=== PATIENT | male | born 1975 | race American Indian/Alaskan Native ===

== ENCOUNTER 2016-08-16 08:37 | Emergency (ER) | payer MEDICAID ==
[2016-08-16 08:41] VITALS: BMI 33.0
--- NOTE | 2016-08-16 09:04 | ED PDOC ---
Arrival/HPI - General Historian: Patient - History of Present Illness Time/Duration: Prior to Arrival <Greg Macias - Last Filed: 08/16/16 10:03> <Gavin Matthew - Last Filed: 08/16/16 13:37> - General Chief Complaint: Substance Abuse Time Seen by Provider: 08/16/16 08:41 - History of Present Illness Narrative History of Present Illness (Text): 08/16/16 08:57 41 y/o male with no PMH presents with EMS with complaints of palpitations, chest discomfort and shortness of breath. Patient admits to taking "dwight" about one hour prior to arrival. Patient also admits to binge drinking for the past 2 days as well as insomnia x2 days. Patient currently complaints of left sided chest discomfort as well as shortness of breath and right distal leg parasthesias which he states started prior to arrival. He denies headache, focal weakness, n/v/d or recent fever or chills. Patient's last drink of alcohol was prior to arrival. He states he has used dwight in the past however it was "a long time ago". He typically drinks on weekends only stating he drinks a pint of ayden on each day of the weekend. He denies other illicit drug use such as heroin, cocaine, or IV drug use. (Greg Macias) Past Medical History - Provider Review Nursing Documentation Reviewed: Yes - Past History Past History: No Previous - Infectious Disease Hx of Infectious Diseases: None - Tetanus Immunization Tetanus Immunization: Unknown - Past Medical History Past Medical History: No Previous - Cardiac Hx Cardiac Disorders: No - Pulmonary Hx Respiratory Disorders: No - Neurological Hx Neurological Disorder: No - HEENT Hx HEENT Disorder: No - Renal Hx Renal Disorder: No - Endocrine/Metabolic Hx Endocrine Disorders: No - Hematological/Oncological Hx Blood Disorders: No - Integumentary Hx Dermatological Disorder: No - Musculoskeletal/Rheumatological Hx Musculoskeletal Disorders: No Hx Falls: No - Gastrointestinal Hx Gastrointestinal Disorders: No - Genitourinary/Gynecological Hx Genitourinary Disorders: No - Psychiatric Hx Anxiety: Yes Hx Depression: No Hx Emotional Abuse: No Hx Physical Abuse: No Hx Substance Use: Yes - Past Surgical History Past Surgical History: No Previous - Anesthesia Hx Anesthesia: No - Suicidal Assessment Feels Threatened In Home Enviroment: No <Greg Macias - Last Filed: 08/16/16 10:03> Family/Social History - Physician Review Nursing Documentation Reviewed: Yes Family/Social History: Unknown Family HX Smoking Status: Heavy Smoker > 10 Cigarettes Daily Hx Alcohol Use: Yes Frequency of alcohol use: Socially Hx Substance Use: Yes Substance used: dwight Hx Substance Use Treatment: No <Greg Macias - Last Filed: 08/16/16 10:03> Allergies/Home Meds <Greg Macias - Last Filed: 08/16/16 10:03> <VipulGavin - Last Filed: 08/16/16 13:37> Allergies/Adverse Reactions: Allergies No Known Allergies Allergy (Verified 08/16/16 08:52) Home Medications: Home Meds Medication Instructions Recorded Confirmed ALPRAZolam HALF TABLET [Xanax HALF 0 mg PO 08/16/16 TABLET] Review of Systems - Physician Review All systems were reviewed & negative as marked: Yes - Review of Systems Constitutional: Normal. absent: Fatigue, Fevers Eyes: Normal ENT: Normal Respiratory: SOB. absent: Cough, Sputum, Wheezing Cardiovascular: Chest Pain, Palpitations. absent: Calf Pain, GOMES Gastrointestinal: absent: Abdominal Pain, Diarrhea, Nausea Genitourinary Male: absent: Dysuria, Frequency, Hematuria Musculoskeletal: absent: Arthralgias, Back Pain Skin: absent: Rash, Pruritis, Skin Lesions Neurological: absent: Headache, Dizziness, Focal Weakness Endocrine: absent: Diaphoresis Psychiatric: Anxiety. absent: Depression <Greg Macias - Last Filed: 08/16/16 10:03> Physical Exam Vital Signs Reviewed: Yes Temperature: Afebrile Blood Pressure: Hypertensive Pulse: Tachycardic Respiratory Rate: Normal Appearance: Positive for: Well-Appearing, Non-Toxic Pain Distress: None Mental Status: Positive for: Alert and Oriented X 3 - Systems Exam Head: Present: Atraumatic, Normocephalic Pupils: Present: PERRL Extroacular Muscles: Present: EOMI Conjunctiva: Present: Normal Mouth: Present: Dry Neck: Present: Normal Range of Motion. No: Meningeal Signs Respiratory/Chest: Present: Clear to Auscultation, Good Air Exchange. No: Respiratory Distress Cardiovascular: Present: Normal S1, S2, Tachycardic. No: Irregular Rhythm Abdomen: Present: Normal Bowel Sounds. No: Tenderness, Distention Upper Extremity: Present: Normal Inspection, Normal ROM. No: Cyanosis, Edema Lower Extremity: Present: Normal Inspection, NORMAL PULSES, Normal ROM. No: Edema, CALF TENDERNESS Neurological: Present: GCS=15, CN II-XII Intact, Speech Normal, Normal Sensory Function. No: Motor Func Grossly Intact Skin: Present: Warm, Dry. No: Rashes Psychiatric: Present: Alert, Oriented x 3, Intoxicated <Greg Macias - Last Filed: 08/16/16 10:03> Vital Signs Temp Pulse Resp BP Pulse Ox 08/16/16 11:39 98.2 F 103 H 18 141/74 97 08/16/16 08:39 98 F 117 H 20 164/90 H 98 Medical Decision Making <Greg Macias - Last Filed: 08/16/16 10:03> - Lab Interpretations I have reviewed the lab results: Yes <Gavin Matthew - Last Filed: 08/16/16 13:37> ED Course and Treatment: 08/16/16 09:34 41 y/o male with no significant PMH presenting with complaints of chest discomfort and shortness of breath with associated illicit drug use. Patient admits to using the drug dwight today as well as recent alcohol binging. Last alcohol ingestion was prior to arrival. The patient is noted to be tachycardic and hypertensive which is likely due to drug effects rather than alcohol withdrawal given proximity of last drink. Will rule out cardiac ischemia, continue to monitor and treat intoxication. EKG with sinus tachycardia and nonspecific EKG changes. No evidence of acute ischemia. - cardiac iso - CBC - CMP - drug screen - serum etoh - PT/PTT - EKG - UA - ativan 1gm IV now. 08/16/16 09:54 lab results reviewed. leukocytosis is noted. alcohol level is negative which indicates patient's tachycardia may be due to alcohol withdrawal. cardiac enzymes are pending. chest xray is without acute pathology. 08/16/16 10:03 Patient is persistently tachycardic. Case discussed with Dr. Pozo who agrees to admit the patient to the hospitalist service for acute alcohol withdrawal. (Greg Macias) Patient seen and examined with resident. Came up with treatment and disposition plan with resident. The patient is a 41 year old male who comes into the emergency department complaining of chest palpitations, chest discomfort and shortness of breath. Patient admitted to using drugs and drinking alcohol prior to arrival. Additional HPI details as noted by the resident. Physical examination reveals the patient is tachycardiac and intoxicated. Will obtain EKG, Chest X-ray and lab work to rule out cardiac etiology. Will give patient ativan. EKG shows Sinus tachycardia at 116 BPM with nonspecific T changes. Chest X-ray shows no active disease. Lab work shows leukocytosis and a negative alcohol level. Result indicate patient is most probably in alcohol withdrawal and will need admission. Case was discussed with Dr. Patel, who is aware and agrees with plan to admit patient to remote telemetry under her services for alcohol withdrawal. Results and plan was discussed with the patient, who expressed understanding. Patient was given the opportunity to ask question, all questions were answered and there is agreement with the plan to be admitted to the hospital. 08/16/16 13:36 pt seen with resident. pt with h/o of etoh abuse, presetns with palpiations after "binge drinking". pt with tachcardia on arrival, ativan given. pt accepted to hospitalist service. (Gavni Matthew) - Lab Interpretations Lab Results: 08/16/16 09:18 08/16/16 09:18 Lab Results 08/16/16 09:18: WBC 12.6 H D, RBC 5.23, Hgb 16.1, Hct 44.3, MCV 84.7, MCH 30.8, MCHC 36.3, RDW 13.4, Plt Count 330, MPV 9.4, Gran % 67.5, Lymph % (Auto) 25.1, [place] % (Auto) 6.9 H, Eos % (Auto) 0.3 L, Baso % (Auto) 0.2, Gran # 8.48 H, Lymph # 3.2, [place] # 0.9 H, Eos # 0.0, Baso # 0.02, Sodium 136, Potassium 3.7, Chloride 98, Carbon Dioxide 21, Anion Gap 21 H, BUN 11, Creatinine 1.0, Est GFR ( Amer) > 60, Est GFR (Non-Af Amer) > 60, Random Glucose 133 H, Calcium 10.3, Magnesium 1.9, Total Bilirubin 1.4 H, AST 50, ALT 58 H, Alkaline Phosphatase 131, Lactate Dehydrogenase 485, Total Creatine Kinase 745 H, CK-MB ( CK-2) 1.6, CK-MB (CK-2) % Cancelled, Troponin I < 0.01, Total Protein 9.3 H, Albumin 5.0 H, Globulin 4.3, Albumin/Globulin Ratio 1.2, Alcohol, Quantitative < 10 - RAD Interpretation Radiology Orders: 08/16/16 08:54 CHEST PORTABLE [RAD] Stat - Medication Orders Current Medication Orders: Discontinued Medications Sodium Chloride (Sodium Chloride 0.9%) 1,000 mls @ 999 mls/hr IV .Q1H1M STA Stop: 08/16/16 11:00 Last Admin: 08/16/16 11:05 Dose: 999 MLS/HR eMAR Start Stop Document 08/16/16 11:05 SRE (Rec: 08/16/16 11:05 SRE [id number]) Intravenous Solution Start Date 08/16/16 Start Time 10:00 End Date 08/16/16 End time 11:00 Total Infusion Time 60 Folic Acid 1 mg/ Thiamine HCl 100 mg/ Multivitamins/Vitamin C 10 ml/ Dextrose 1 ,011.2 mls @ 100 mls/hr IV .Q10H7M [facility] Ketorolac Tromethamine (Toradol) Confirm Administered Dose 30 mg .ROUTE .STK- MED ONE Stop: 08/16/16 09:55 Last Admin: 08/16/16 09:58 Dose: 30 MG Lorazepam (Ativan) 1 mg IVP STAT STA PRN Reason: Protocol Stop: 08/16/16 09:02 Last Admin: 08/16/16 09:10 Dose: 1 MG Behavioural Document 08/16/16 09:10 SRE (Rec: 08/16/16 09:16 SRE [id number]) Maintenance Maintenance Dose No Nonmedicinal Nonmedicinal Interventions See nurse's notes Behavior Behavior for Medication: Anxiety IVP Administration Document 08/16/16 09:10 SRE (Rec: 08/16/16 09:16 SRE [id number]) Charges for Administration # of IVP Administrations 1 Lorazepam (Ativan) 0.5 mg IVP Q6H PRN; Protocol PRN Reason: Anxiety Ondansetron HCl (Zofran Inj) 4 mg IVP Q4H PRN PRN Reason: Nausea/Vomiting Pantoprazole Sodium (Protonix Inj) 40 mg IVP DAILY LUL <Greg Macias - Last Filed: 08/16/16 10:03> - Scribe Statement The provider has reviewed the documentation as recorded by the Scribe <Gavin Matthew - Last Filed: 08/16/16 13:37> - Scribe Statement Cordelia Dangelo Provider Scribe Attestation: All medical record entries made by the Scribe were at my direction and personally dictated by me. I have reviewed the chart and agree that the record accurately reflects my personal performance of the history, physical exam, medical decision making, and the department course for this patient. I have also personally directed, reviewed, and agree with the discharge instructions and disposition. (Gavin Matthew) Disposition/Present on Arrival - Present on Arrival Any Indicators Present on Arrival: No History of DVT/PE: No History of Uncontrolled Diabetes: No Urinary Catheter: No History of Decub. Ulcer: No History Surgical Site Infection Following: None - Disposition Have Diagnosis and Disposition been Completed?: Yes Disposition Time: 10:06 Patient Plan: Admission <Greg Macias - Last Filed: 08/16/16 10:03> <Gavni [email or web address] - Last Filed: 08/16/16 13:37> - Disposition Diagnosis: Alcohol withdrawal syndrome Disposition: AGAINST MEDICAL ADVICE Condition: FAIR Referrals: Apurva Fields MD [Primary Care Provider] - Follow up with primary
--- NOTE | 2016-08-16 09:19 | RAD ---
HISTORY: cp COMPARISON: 08/24/2015 FINDINGS: LUNGS: No active pulmonary disease. PLEURA: No significant pleural effusion identified, no pneumothorax apparent. CARDIOVASCULAR: Normal. OSSEOUS STRUCTURES: No significant abnormalities. VISUALIZED UPPER ABDOMEN: Normal. OTHER FINDINGS: None. IMPRESSION: No active disease.
[2016-08-16 09:21] LABS: ADD MANUAL DIFF? NO
[2016-08-16 09:29] LABS: BASO # 0.02 K/mm3 (0.0-2.0); BASO % 0.2 % (0.0-3.0); EOS % 0.3 % (1.5-5.0); GRAN # 8.48 (1.4-6.5); GRAN % 67.5 % (50.0-68.0); HEMATOCRIT 44.3 % (42.0-52.0); LYMPH # 3.2 (1.2-3.4); LYMPH % 25.1 % (22.0-35.0); MEAN CELL VOLUME 84.7 fL (80.0-105.0); MEAN CORPUSCULAR HEMOGLOBIN 30.8 pg (25.0-35.0); MEAN CORPUSCULAR HGB CONC 36.3 g/dl (31.0-37.0); MEAN PLATELET VOLUME 9.4 fl (7.0-11.0); MONO # 0.9 (0.1-0.6); MONO % 6.9 % (1.0-6.0); PLATELET COUNT 330 10^3/uL (120.0-450.0); RED CELL DISTRIBUTION WIDTH 13.4 % (11.5-14.5); WHITE BLOOD COUNT 12.6 10^3/ul (4.5-11.0)
[2016-08-16 09:39] LABS: ALB/GLOB RATIO 1.2 (1.1-1.8); ALKALINE PHOSPHATASE 131 U/L (38-133); ALT/SGPT 58 U/L (7-56); AST/SGOT 50 U/L (15-59); BILIRUBIN,TOTAL 1.4 mg/dL (0.2-1.3); BLOOD UREA NITROGEN 11 mg/dL (7-21); CALCIUM 10.3 mg/dL (8.4-10.5); CARBON DIOXIDE 21 mmol/L (21-33); CHLORIDE 98 mmol/L (98-107); GFR AFRICAN-AMERICAN > 60; GLUCOSE,RANDOM 133 mg/dL (70-110); MAGNESIUM 1.9 mg/dL (1.7-2.2); POTASSIUM 3.7 mmol/L (3.6-5.0); SODIUM 136 mmol/L (132-148); TOTAL PROTEIN 9.3 g/dL (5.8-8.3)
[2016-08-16 09:50] LABS: TROPONIN I < 0.01 ng/mL
[2016-08-16] MEDS ORDERED: Sodium Chloride 0.9% 1,000 ML IV STA (10:00)
--- NOTE | 2016-08-16 10:05 | CP.PCM.HP ---
<Diony Preciado - Last Filed: 08/16/16 12:47> History of Present Illness - History of Present Illness History of Present Illness: CC: Chest pain 41 M without PMH presents was brought in by EMS with complaints of palpitations , chest discomfort and shortness of breath. Patient stated a sudden onset and never having experienced these symptoms before. He admits to taking "dwight" about one hour prior to arrival. Patient also reported to binge drinking for the past 2 days without sleeping. He stated that he has been under a lot of stress from work and his girlfriend this week. He rated the chest pain as 1/10 now, but prior to arrival it was 8/10. He described the pain as a constant pressure located in the left chest area without radiation. He denied associated jaw/arm pain and numbness/tingling. Nothing he noticed alleviates or exacerbates the pain. He did not take anything for the pain. Patient's last drink of alcohol was earlier today. He states he has used dwight in the past however it was "a long time ago". He typically drinks on weekends only stating he drinks a pint of ayden on each day of the weekend. He denies other illicit drug use such as heroin, cocaine, or IV drug use. Denies syncope, lightheadedness, vertigo, headache, focal weakness, fever/chills, abd pain, n/v/ d, constipation, incontinence, urinary symptoms. PMD: Dr. Apurva Fields PMH: Denies Meds: Denies Allergy: NKDA PSH: Denies Hosp: Multiple ER vists in past for various issues including alcohol intoxication FH: Grandmother - DM Social: Smokes cigarettes occassionally, drink 1 pint on weekend days, denied other illicit drug use besides "dwight" Present on Admission - Present on Admission Any Indicators Present on Admission: No History of DVT/PE: No History of Uncontrolled Diabetes: No Urinary Catheter: No Decubitus Ulcer Present: No Review of Systems - Review of Systems All systems: reviewed and no additional remarkable complaints except (as per HPI ) Past Patient History - Infectious Disease Hx of Infectious Diseases: None - Tetanus Immunizations Tetanus Immunization: Unknown - Past Medical History & Family History Past Medical History?: No - Past Social History Smoking Status: Heavy Smoker > 10 Cigarettes Daily - CARDIAC Hx Cardiac Disorders: No - PULMONARY Hx Respiratory Disorders: No - NEUROLOGICAL Hx Neurological Disorder: No - HEENT Hx HEENT Problems: No - RENAL Hx Chronic Kidney Disease: No - ENDOCRINE/METABOLIC Hx Endocrine Disorders: No - HEMATOLOGICAL/ONCOLOGICAL Hx Blood Disorders: No - INTEGUMENTARY Hx Dermatological Problems: No - MUSCULOSKELETAL/RHEUMATOLOGICAL Hx Musculoskeletal Disorders: No Hx Falls: No - GASTROINTESTINAL Hx Gastrointestinal Disorders: No - GENITOURINARY/GYNECOLOGICAL Hx Genitourinary Disorders: No - PSYCHIATRIC Hx Anxiety: Yes Hx Depression: No Hx Emotional Abuse: No Hx Physical Abuse: No Hx Substance Use: Yes - SURGICAL HISTORY Hx Surgeries: No - ANESTHESIA Hx Anesthesia: No Meds Allergies/Adverse Reactions: Allergies Allergy/AdvReac Type Severity Reaction Status Date / Time No Known Allergies Allergy Verified 08/16/16 08:52 Physical Exam - Constitutional Appears: Non-toxic, No Acute Distress - Head Exam Head Exam: ATRAUMATIC, NORMOCEPHALIC - Eye Exam Eye Exam: EOMI, Normal appearance Pupil Exam: PERRL - ENT Exam ENT Exam: Mucous Membranes Moist - Neck Exam Neck exam: Positive for: Normal Inspection - Respiratory Exam Respiratory Exam: Clear to Auscultation Bilateral, NORMAL BREATHING PATTERN - Cardiovascular Exam Cardiovascular Exam: REGULAR RHYTHM, +S1, +S2 - GI/Abdominal Exam GI & Abdominal Exam: Normal Bowel Sounds, Soft. absent: Distended, Firm, Guarding, Rebound, Tenderness - Extremities Exam Extremities exam: Positive for: normal capillary refill, pedal pulses present. Negative for: calf tenderness - Back Exam Back exam: absent: CVA tenderness (L), CVA tenderness (R) - Neurological Exam Neurological exam: Alert, CN II-XII Intact, Oriented x3 - Psychiatric Exam Psychiatric exam: Normal Affect, Normal Mood - Skin Skin Exam: Dry, Intact, Normal Color, Warm Results - Vital Signs Recent Vital Signs: Last Vital Signs Temp 98 F 08/16/16 08:39 Pulse 117 H 08/16/16 08:39 Resp 20 08/16/16 08:39 BP 164/90 H 08/16/16 08:39 Pulse Ox 98 08/16/16 08:39 - Labs Result Diagrams: 08/16/16 09:18 08/16/16 09:18 Labs: Laboratory Results - last 24 hr 08/16/16 09:18 WBC 12.6 H D RBC 5.23 Hgb 16.1 Hct 44.3 MCV 84.7 MCH 30.8 MCHC 36.3 RDW 13.4 Plt Count 330 MPV 9.4 Gran % 67.5 Lymph % (Auto) 25.1 [place] % (Auto) 6.9 H Eos % (Auto) 0.3 L Baso % (Auto) 0.2 Gran # 8.48 H Lymph # 3.2 [place] # 0.9 H Eos # 0.0 Baso # 0.02 Sodium 136 Potassium 3.7 Chloride 98 Carbon Dioxide 21 Anion Gap 21 H BUN 11 Creatinine 1.0 Est GFR ( Amer) > 60 Est GFR (Non-Af Amer) > 60 Random Glucose 133 H Calcium 10.3 Magnesium 1.9 Total Bilirubin 1.4 H AST 50 ALT 58 H Alkaline Phosphatase 131 Lactate Dehydrogenase 485 Total Creatine Kinase 745 H CK-MB (CK-2) 1.6 CK-MB (CK-2) % Cancelled Troponin I < 0.01 Total Protein 9.3 H Albumin 5.0 H Globulin 4.3 Albumin/Globulin Ratio 1.2 Alcohol, Quantitative < 10 Assessment & Plan - Assessment and Plan (Free Text) Plan: 1. Chest pain Admit to telemetry for observation Serial Troponins UDS IVF Ativan PRN EKG: Sinus tachycardia Banana bag Lipid panel, TSH, HA1C Zofran PRN CXR: no active disease f/u daily labs HHD 2. Substance abuse Ativan PRN Banana bag Zofran PRN UDS Hep panel Serum Alcohol level 3. Prophylactic Measures PT/OT Protonix 40 mg PO daily Aspiration precautions Seizure precautions Fall risk <Flor Pozo - Last Filed: 08/17/16 10:55> Results - Vital Signs Recent Vital Signs: Last Vital Signs Temp 98.2 F 08/16/16 11:39 Pulse 103 H 08/16/16 11:39 Resp 18 08/16/16 11:39 BP 141/74 08/16/16 11:39 Pulse Ox 97 08/16/16 11:39 - Labs Result Diagrams: 08/16/16 09:18 08/16/16 09:18 Assessment & Plan - Assessment and Plan (Free Text) Assessment: attending note: patient seen and examined with resident in ER. Patient is a 41 Male without PMH presents was brought in by EMS with complaints of palpitations, chest discomfort and shortness of breath. Patient stated a sudden onset and never having experienced these symptoms before. He admits to taking "dwight" about one hour prior to arrival. Patient also reported to binge drinking for the past 2 days without sleeping. atypical chest discomfort; cardiac enzyme x 1 negative. Currently patient denied any chest pain. EKG showed nonspecific T-wave changes similar to old EKG. Alcohol abuse; monitor for withdrawal symptoms. Continue Ativan. Elevated LFTs; secondary to alcohol abuse. Complete alcohol cessation is strongly advised. Hepatitis profile ordered. Hypercholesterolemia; and dietary education given. drug abuse; patient is using Dwight. complete cessation is strongly advised. Patient will be admitted to telemetry floor and monitored closely. Attending/Attestation - Attestation I have personally seen and examined this patient.: Yes I have fully participated in the care of the patient.: Yes I have reviewed all pertinent clinical information: Yes
[2016-08-16] MEDS ORDERED: Folic Acid 1 MG, Thiamine 100 MG, Multivitamin (MVI) 10 ML in Dextrose 5% In Water 1,00... IV SCH (11:30)
[2016-08-16 11:42] VITALS: BP 141/74; PULSE 103; RESP 18; TEMP 98.2; O2SAT 97
--- NOTE | 2016-08-16 13:11 | CP.PCM.DIS ---
<Diony Preciado - Last Filed: 08/16/16 13:06> Provider - Provider Primary care physician: Apurva Fields MD Time Spent in preparation of Discharge (in minutes): 40 Diagnosis - Discharge Diagnosis (1) Chest pain Status: Acute Comment: see hospital course (2) Substance abuse Status: Acute Comment: see hospital course Hospital Course - Lab Results Lab Results: Most Recent Lab Values WBC 12.6 10^3/ul (4.5-11.0) H D 08/16/16 09:18 RBC 5.23 10^6/uL (3.5-6.1) 08/16/16 09:18 Hgb 16.1 gm/dL (14.0-18.0) 08/16/16 09:18 Hct 44.3 % (42.0-52.0) 08/16/16 09:18 MCV 84.7 fL (80.0-105.0) 08/16/16 09:18 MCH 30.8 pg (25.0-35.0) 08/16/16 09:18 MCHC 36.3 g/dl (31.0-37.0) 08/16/16 09:18 RDW 13.4 % (11.5-14.5) 08/16/16 09:18 Plt Count 330 10^3/uL (120.0-450.0) 08/16/16 09:18 MPV 9.4 fl (7.0-11.0) 08/16/16 09:18 Gran % 67.5 % (50.0-68.0) 08/16/16 09:18 Lymph % (Auto) 25.1 % (22.0-35.0) 08/16/16 09:18 [place] % (Auto) 6.9 % (1.0-6.0) H 08/16/16 09:18 Eos % (Auto) 0.3 % (1.5-5.0) L 08/16/16 09:18 Baso % (Auto) 0.2 % (0.0-3.0) 08/16/16 09:18 Gran # 8.48 (1.4-6.5) H 08/16/16 09:18 Lymph # 3.2 (1.2-3.4) 08/16/16 09:18 [place] # 0.9 (0.1-0.6) H 08/16/16 09:18 Eos # 0.0 (0.0-0.7) 08/16/16 09:18 Baso # 0.02 K/mm3 (0.0-2.0) 08/16/16 09:18 Sodium 136 mmol/L (132-148) 08/16/16 09:18 Potassium 3.7 mmol/L (3.6-5.0) 08/16/16 09:18 Chloride 98 mmol/L (98-107) 08/16/16 09:18 Carbon Dioxide 21 mmol/L (21-33) 08/16/16 09:18 Anion Gap 21 (10-20) H 08/16/16 09:18 BUN 11 mg/dL (7-21) 08/16/16 09:18 Creatinine 1.0 mg/dL (0.5-1.4) 08/16/16 09:18 Est GFR ( Amer) > 60 08/16/16 09:18 Est GFR (Non-Af Amer) > 60 08/16/16 09:18 Random Glucose 133 mg/dL (70-110) H 08/16/16 09:18 Calcium 10.3 mg/dL (8.4-10.5) 08/16/16 09:18 Magnesium 1.9 mg/dL (1.7-2.2) 08/16/16 09:18 Total Bilirubin 1.4 mg/dL (0.2-1.3) H 08/16/16 09:18 AST 50 U/L (15-59) 08/16/16 09:18 ALT 58 U/L (7-56) H 08/16/16 09:18 Alkaline Phosphatase 131 U/L (38-133) 08/16/16 09:18 Lactate Dehydrogenase 485 U/L (333-699) 08/16/16 09:18 Total Creatine Kinase 745 U/L (35-230) H 08/16/16 09:18 CK-MB (CK-2) 1.6 ng/mL (0.0-3.6) 08/16/16 09:18 CK-MB (CK-2) % Cancelled 08/16/16 09:18 Troponin I < 0.01 ng/mL 08/16/16 09:18 Total Protein 9.3 g/dL (5.8-8.3) H 08/16/16 09:18 Albumin 5.0 g/dL (3.0-4.8) H 08/16/16 09:18 Globulin 4.3 gm/dL 08/16/16 09:18 Albumin/Globulin Ratio 1.2 (1.1-1.8) 08/16/16 09:18 Alcohol, Quantitative < 10 mg/dL (0-10) 08/16/16 09:18 - Hospital Course Hospital Course: 41 M without PMH presents was brought in by EMS with complaints of palpitations , chest discomfort and shortness of breath. Patient stated a sudden onset and never having experienced these symptoms before. He admits to taking "dwight" about one hour prior to arrival. Patient also reported to binge drinking for the past 2 days without sleeping. He stated that he has been under a lot of stress from work and his girlfriend this week. He rated the chest pain as 1/10 now, but prior to arrival it was 8/10. He described the pain as a constant pressure located in the left chest area without radiation. He denied associated jaw/arm pain and numbness/tingling. Nothing he noticed alleviates or exacerbates the pain. He did not take anything for the pain. Patient's last drink of alcohol was earlier today. He states he has used dwight in the past however it was "a long time ago". He typically drinks on weekends only stating he drinks a pint of ayden on each day of the weekend. He denies other illicit drug use such as heroin, cocaine, or IV drug use. Denies syncope, lightheadedness, vertigo, headache, focal weakness, fever/chills, abd pain, n/v/ d, constipation, incontinence, urinary symptoms. Patient was admitted to telemetry observation for chest pain and substance abuse. Patient was started on banana bag IVF and ativan as needed. Serial troponins, urine drug screen and serum alcohol level were ordered. After admitting patient, he decided that he did not want to stay in hospital. Patient had capapcity to make his own medical decision so he opted to sign out against medical advice. Risks versus benefits of leaving and staying were discussed with him. He verbalized understanding and agreement. Discharge Exam - Head Exam Head Exam: ATRAUMATIC, NORMOCEPHALIC Discharge Plan - Follow Up Plan Condition: FAIR Disposition: AGAINST MEDICAL ADVICE Referrals: Apurva Fields MD [Primary Care Provider] - Follow up with primary <Flor Pozo - Last Filed: 08/17/16 10:57> Provider - Provider Primary care physician: Apurva Fielsd MD Time Spent in preparation of Discharge (in minutes): 35 Hospital Course - Lab Results Lab Results: Most Recent Lab Values WBC 12.6 10^3/ul (4.5-11.0) H D 08/16/16 09:18 RBC 5.23 10^6/uL (3.5-6.1) 08/16/16 09:18 Hgb 16.1 gm/dL (14.0-18.0) 08/16/16 09:18 Hct 44.3 % (42.0-52.0) 08/16/16 09:18 MCV 84.7 fL (80.0-105.0) 08/16/16 09:18 MCH 30.8 pg (25.0-35.0) 08/16/16 09:18 MCHC 36.3 g/dl (31.0-37.0) 08/16/16 09:18 RDW 13.4 % (11.5-14.5) 08/16/16 09:18 Plt Count 330 10^3/uL (120.0-450.0) 08/16/16 09:18 MPV 9.4 fl (7.0-11.0) 08/16/16 09:18 Gran % 67.5 % (50.0-68.0) 08/16/16 09:18 Lymph % (Auto) 25.1 % (22.0-35.0) 08/16/16 09:18 [place] % (Auto) 6.9 % (1.0-6.0) H 08/16/16 09:18 Eos % (Auto) 0.3 % (1.5-5.0) L 08/16/16 09:18 Baso % (Auto) 0.2 % (0.0-3.0) 08/16/16 09:18 Gran # 8.48 (1.4-6.5) H 08/16/16 09:18 Lymph # 3.2 (1.2-3.4) 08/16/16 09:18 [place] # 0.9 (0.1-0.6) H 08/16/16 09:18 Eos # 0.0 (0.0-0.7) 08/16/16 09:18 Baso # 0.02 K/mm3 (0.0-2.0) 08/16/16 09:18 Sodium 136 mmol/L (132-148) 08/16/16 09:18 Potassium 3.7 mmol/L (3.6-5.0) 08/16/16 09:18 Chloride 98 mmol/L (98-107) 08/16/16 09:18 Carbon Dioxide 21 mmol/L (21-33) 08/16/16 09:18 Anion Gap 21 (10-20) H 08/16/16 09:18 BUN 11 mg/dL (7-21) 08/16/16 09:18 Creatinine 1.0 mg/dL (0.5-1.4) 08/16/16 09:18 Est GFR ( Amer) > 60 08/16/16 09:18 Est GFR (Non-Af Amer) > 60 08/16/16 09:18 Random Glucose 133 mg/dL (70-110) H 08/16/16 09:18 Calcium 10.3 mg/dL (8.4-10.5) 08/16/16 09:18 Magnesium 1.9 mg/dL (1.7-2.2) 08/16/16 09:18 Total Bilirubin 1.4 mg/dL (0.2-1.3) H 08/16/16 09:18 AST 50 U/L (15-59) 08/16/16 09:18 ALT 58 U/L (7-56) H 08/16/16 09:18 Alkaline Phosphatase 131 U/L (38-133) 08/16/16 09:18 Lactate Dehydrogenase 485 U/L (333-699) 08/16/16 09:18 Total Creatine Kinase 745 U/L (35-230) H 08/16/16 09:18 CK-MB (CK-2) 1.6 ng/mL (0.0-3.6) 08/16/16 09:18 CK-MB (CK-2) % Cancelled 08/16/16 09:18 Troponin I < 0.01 ng/mL 08/16/16 09:18 Total Protein 9.3 g/dL (5.8-8.3) H 08/16/16 09:18 Albumin 5.0 g/dL (3.0-4.8) H 08/16/16 09:18 Globulin 4.3 gm/dL 08/16/16 09:18 Albumin/Globulin Ratio 1.2 (1.1-1.8) 08/16/16 09:18 Alcohol, Quantitative < 10 mg/dL (0-10) 08/16/16 09:18 - Hospital Course Hospital Course: attending note; Patient is a 41-year-old male getting admitted with alcohol abuse, drug abuse with nonspecific chest discomfort. Patient refused to get admitted. Signed AGAINST MEDICAL ADVICE. Complications including alcohol withdrawal/arrhythmias/ Explained in detail. diagnosis; Alcohol abuse Drug abuse Hyperlipidemia elevated LFTs Glucose intolerance
--- NOTE | 2016-08-16 16:46 | CARD ---
APPROVED REPORT EKG Measurement Heart [id number] <Conclusion> Sinus tachycardia Nonspecific T wave abnormality Abnormal ECG
== END 2016-08-16 11:50 | disposition left against medical advice (07) ==
LOC: ED 08:37 → UNDOADMIN 10:03 → ERH 10:03
DX: F10.239 Alcohol dependence with withdrawal, unspecified (principal); Y90.0 Blood alcohol level of less than 20 mg/100 ml; F41.9 Anxiety disorder, unspecified
CPT/HCPCS: 71010; 80053; 80320; 82550; 82553; 83615; 83735; 84484; 85025; 93005; 96361; 96374; 99285; J1885; J2060; J7040

== ENCOUNTER 2017-09-11 16:53 | Emergency (ER) | payer BC, MEDICAID ==
[2017-09-11 17:06] VITALS: RESP 18; TEMP 98.3; BMI 32.6
--- NOTE | 2017-09-11 17:34 | ED PDOC ---
Arrival/HPI - General Chief Complaint: Dizziness/Lightheaded Time Seen by Provider: 09/11/17 17:08 Historian: Patient - History of Present Illness Narrative History of Present Illness (Text): 09/11/17 17:31 42yo male with PMHx of hypertension bib EMS with complaint of dizziness, tingling sensation on his b/l hands and SOB. States he had similar symptoms last week, but didn't see a Doctor. States his symptoms is currently resolved. He was recently diagnosed with HTN and placed on HCTZ. He denies focal weakness , visual changes, nausea, vomiting, chest pain, calf pain, LE edema, any other complaint. Past Medical History - Provider Review Nursing Documentation Reviewed: Yes - Past History Past History: No Previous - Infectious Disease Hx of Infectious Diseases: None - Tetanus Immunization Tetanus Immunization: Unknown - Past Medical History Past Medical History: No Previous - Cardiac Hx Cardiac Disorders: No Hx Hypertension: Yes - Pulmonary Hx Respiratory Disorders: No - Neurological Hx Neurological Disorder: No - HEENT Hx HEENT Disorder: No - Renal Hx Renal Disorder: No - Endocrine/Metabolic Hx Endocrine Disorders: No - Hematological/Oncological Hx Blood Disorders: No - Integumentary Hx Dermatological Disorder: No - Musculoskeletal/Rheumatological Hx Musculoskeletal Disorders: No Hx Falls: No - Gastrointestinal Hx Gastrointestinal Disorders: No - Genitourinary/Gynecological Hx Genitourinary Disorders: No - Psychiatric Hx Anxiety: Yes Hx Depression: No Hx Emotional Abuse: No Hx Physical Abuse: No Hx Substance Use: Yes - Past Surgical History Past Surgical History: No Previous - Anesthesia Hx Anesthesia: No - Suicidal Assessment Feels Threatened In Home Enviroment: No Family/Social History - Physician Review Nursing Documentation Reviewed: Yes Family/Social History: Unknown Family HX Smoking Status: Light Smoker < 10 Cigarettes Daily Hx Alcohol Use: Yes Hx Substance Use: Yes Substance used: dwight Hx Substance Use Treatment: No Allergies/Home Meds Allergies/Adverse Reactions: Allergies No Known Allergies Allergy (Verified 08/16/16 08:52) Home Medications: Home Meds Medication Instructions Recorded Confirmed hydroCHLOROthiazide [Microzide] 12.5 mg PO DAILY 09/11/17 09/11/17 Review of Systems - Physician Review All systems were reviewed & negative as marked: Yes - Review of Systems Constitutional: Normal Eyes: Normal ENT: Normal Respiratory: SOB. absent: Cough, Sputum, Wheezing Cardiovascular: Normal Gastrointestinal: Normal Genitourinary Male: Normal Musculoskeletal: Normal Skin: Normal Neurological: Dizziness. absent: Headache, Focal Weakness, Gait Changes, Speech Changes, Facial Droop Endocrine: Normal Hemo/Lymphatic: Normal Psychiatric: Normal Physical Exam Vital Signs Reviewed: Yes Vital Signs Temp Pulse Resp BP Pulse Ox 09/11/17 18:46 88 18 152/93 H 99 09/11/17 17:03 98.3 F 84 18 140/85 98 Temperature: Afebrile Blood Pressure: Normal Pulse: Regular Respiratory Rate: Normal Appearance: Positive for: Well-Appearing, Non-Toxic, Comfortable Pain Distress: None Mental Status: Positive for: Alert and Oriented X 3 - Systems Exam Head: Present: Atraumatic, Normocephalic Pupils: Present: PERRL Extroacular Muscles: Present: EOMI Conjunctiva: Present: Normal Mouth: Present: Moist Mucous Membranes Neck: Present: Normal Range of Motion Respiratory/Chest: Present: Clear to Auscultation, Good Air Exchange. No: Respiratory Distress, Accessory Muscle Use, Wheezes, Decreased Breath Sounds, Rales, Retracting, Rhonchi, Tachypneic Cardiovascular: Present: Regular Rate and Rhythm, Normal S1, S2. No: Murmurs Abdomen: No: Tenderness, Distention, Peritoneal Signs Back: Present: Normal Inspection Upper Extremity: Present: Normal Inspection. No: Cyanosis, Edema Lower Extremity: Present: Normal Inspection. No: Edema Neurological: Present: GCS=15, CN II-XII Intact, Speech Normal, Motor Func Grossly Intact, Normal Sensory Function, Normal Cerebellar Funct, Norm Deep Tendon Reflexes, Gait Normal, Memory Normal, Normal 2Pt Descrimination, Other ( No focal neurological deficit) Skin: Present: Warm, Dry, Normal Color. No: Rashes Psychiatric: Present: Alert, Oriented x 3, Normal Insight, Normal Concentration Medical Decision Making ED Course and Treatment: 09/11/17 23:31 Pt presented for stated history. He notes that his symptoms resolved on presentation to ED. He was hemodyanmically stable. He had no focal neurological deficit. Lab was unremarkable. His symptoms could be secondary to Anxiety. He denied history of anxiety. He was advised to do valsalvar maneuver when he gets the symptoms and f/u with his PMD for anxiolytic if needed. EKG NSR @78bpm CXR NAD All result was DW the pt. He was advised to f/u with his PMD/[employer]. - Lab Interpretations Lab Results: 09/11/17 17:40 09/11/17 17:40 Lab Results 09/11/17 17:40: Sodium 138, Chloride 97 L, Potassium 3.7, Carbon Dioxide 29, Anion Gap 16, BUN 17, Creatinine 1.1, Est GFR ( Amer) > 60, Est GFR (Non- Af Amer) > 60, Random Glucose 109, Calcium 10.6 H, Magnesium 2.1, Total Bilirubin 1.3, AST 59 D, ALT 63 H, Alkaline Phosphatase 95, Lactate Dehydrogenase 516, Total Creatine Kinase 470 H, CK-MB (CK-2) 0.8, CK-MB (CK-2) % Cancelled, Troponin I < 0.01, Total Protein 8.4 H, Albumin 4.8, Globulin 3.6, Albumin/Globulin Ratio 1.3 09/11/17 17:40: pO2 48, VBG pH 7.45 H, VBG pCO2 45.0, VBG HCO3 31.3 H, VBG Total CO2 32.7 H, VBG O2 Sat (Calc) 88.7 H, VBG Base Excess 6.4 H, VBG Potassium 3.4 L, Sodium 137.0, Chloride 99.0, Glucose 116 H, Lactate 1.6, FiO2 21.0, Venous Blood Potassium 3.4 L 09/11/17 17:40: PT 11.8, INR 1.03, APTT 29.9 09/11/17 17:40: WBC 11.8 H D, RBC 4.95, Hgb 15.0, Hct 43.1, MCV 87.1 D, MCH 30.3, MCHC 34.8, RDW 14.1, Plt Count 260, MPV 9.3, Gran % 61.0, Lymph % (Auto) 30.0, [place] % (Auto) 8.0 H, Eos % (Auto) 0.7 L, Baso % (Auto) 0.3, Gran # 7.22 H , Lymph # (Auto) 3.6 H, [place] # (Auto) 0.9 H, Eos # (Auto) 0.1, Baso # (Auto) 0.03 - RAD Interpretation Radiology Orders: 09/11/17 17:19 CHEST PORTABLE [RAD] Stat Disposition/Present on Arrival - Present on Arrival Any Indicators Present on Arrival: No History of DVT/PE: No History of Uncontrolled Diabetes: No Urinary Catheter: No History of Decub. Ulcer: No History Surgical Site Infection Following: None - Disposition Have Diagnosis and Disposition been Completed?: Yes Diagnosis: Anxiety, Palpitation Disposition: HOME/ ROUTINE Disposition Time: 19:00 Patient Plan: Discharge Condition: STABLE Discharge Instructions (ExitCare): Chest Pain, Anxiety, Adult (DC) Additional Instructions: Follow up with your Doctor Return to ED for any new or worsening symptoms Referrals: PCP,NO [Primary Care Provider] - Follow up with primary Josh Jason MD [Staff Provider] - Follow up with primary Forms: [facility] (Moz[place]ican), WORK NOTE
[2017-09-11 17:52] LABS: BASO # 0.03 K/mm3 (0.0-2.0); BASO % 0.3 % (0.0-3.0); EOS # 0.1 (0.0-0.7); EOS % 0.7 % (1.5-5.0); GRAN # 7.22 (1.4-6.5); LYMPH # 3.6 (1.2-3.4); MEAN CELL VOLUME 87.1 fl (80.0-105.0); MEAN CORPUSCULAR HEMOGLOBIN 30.3 pg (25.0-35.0); MEAN CORPUSCULAR HGB CONC 34.8 g/dl (31.0-37.0); MEAN PLATELET VOLUME 9.3 fl (7.0-11.0); MONO # 0.9 (0.1-0.6); RBC 4.95 10^6/uL (3.5-6.1); RED CELL DISTRIBUTION WIDTH 14.1 % (11.5-14.5); WHITE BLOOD COUNT 11.8 10^3/ul (4.5-11.0)
[2017-09-11 17:53] LABS: VENOUS BLOOD GAS BASE EXCESS 6.4 mmol/L (0.0-2.0); VENOUS BLOOD GAS PO2 48 mm/Hg (30-55); VENOUS BLOOD PH 7.45 (7.32-7.43)
--- NOTE | 2017-09-11 17:53 | RAD ---
HISTORY: SOB COMPARISON: 06/12/2017. FINDINGS: LUNGS: The lungs are well inflated and clear. PLEURA: No significant pleural effusion identified, no pneumothorax apparent. CARDIOVASCULAR: Normal. OSSEOUS STRUCTURES: No significant abnormalities. VISUALIZED UPPER ABDOMEN: Normal. OTHER FINDINGS: None. IMPRESSION: No active pulmonary disease.
[2017-09-11 18:14] LABS: BLOOD UREA NITROGEN 17 mg/dL (7-21); GFR AFRICAN-AMERICAN > 60; GFR NON-AFRICAN AMERICAN > 60
[2017-09-11 18:15] LABS: CALCIUM 10.6 mg/dL (8.4-10.5); INR 1.03 (0.93-1.08); PARTIAL THROMBOPLASTIN TIME 29.9 Seconds (25.1-36.5); PROTHROMBIN TIME 11.8 SECONDS (9.4-12.5)
[2017-09-11 18:16] LABS: ALB/GLOB RATIO 1.3 (1.1-1.8); ALBUMIN 4.8 g/dL (3.0-4.8); ALT/SGPT 63 U/L (7-56); AST/SGOT 59 U/L (17-59)
[2017-09-11 18:18] LABS: TROPONIN I < 0.01 ng/mL
[2017-09-11 18:22] LABS: CK-MB 0.8 ng/mL (0.0-3.6)
[2017-09-11 18:46] VITALS: BP 152/93; PULSE 88; O2SAT 99
--- NOTE | 2017-09-11 22:17 | CARD ---
APPROVED REPORT EKG Measurement Heart [id number] <Conclusion> Normal sinus rhythm T wave abnormality, consider lateral ischemia Abnormal ECG
== END 2017-09-11 18:46 | disposition home or self-care (01) ==
LOC: ED 16:53
DX: F41.9 Anxiety disorder, unspecified (principal); R00.2 Palpitations; I10 Essential (primary) hypertension; F17.210 Nicotine dependence, cigarettes, uncomplicated

== ENCOUNTER 2017-09-23 14:11 | Emergency (ER) | payer BC ==
[2017-09-23 14:33] VITALS: TEMP 97.7; BMI 32.6
--- NOTE | 2017-09-23 14:53 | ED PDOC ---
Arrival/HPI - General Time Seen by Provider: 09/23/17 14:16 Historian: Patient - History of Present Illness Narrative History of Present Illness (Text): you were treated in the ED today fo hx htn and haven't taken blood pressure medication in a few days, and now with dizziness but otherwise without any nausea/vomiting/headache/difficulty breathing/chest pain/abdomen pain/numbness/ tingling/loss of limb function/pain with urination/drug use/smoking. Time/Duration: > week (2) Symptom Onset: Gradual Symptom Course: Unchanged, Intermittent Quality: Other (no pain) Activities at Onset: Rest Context: Sitting Past Medical History - Provider Review Nursing Documentation Reviewed: Yes - Travel History Have you recently traveled outside [place] w/in the past 3 mons?: No - Past History Past History: No Previous - Infectious Disease Hx of Infectious Diseases: None - Tetanus Immunization Tetanus Immunization: Unknown - Past Medical History Past Medical History: No Previous - Cardiac Hx Cardiac Disorders: No Hx Hypertension: Yes - Pulmonary Hx Respiratory Disorders: No - Neurological Hx Neurological Disorder: No - HEENT Hx HEENT Disorder: No - Renal Hx Renal Disorder: No - Endocrine/Metabolic Hx Endocrine Disorders: No - Hematological/Oncological Hx Blood Disorders: No - Integumentary Hx Dermatological Disorder: No - Musculoskeletal/Rheumatological Hx Musculoskeletal Disorders: No Hx Falls: No - Gastrointestinal Hx Gastrointestinal Disorders: No - Genitourinary/Gynecological Hx Genitourinary Disorders: No - Psychiatric Hx Anxiety: Yes Hx Depression: No Hx Emotional Abuse: No Hx Physical Abuse: No Hx Substance Use: Yes - Past Surgical History Past Surgical History: No Previous - Anesthesia Hx Anesthesia: No - Suicidal Assessment Feels Threatened In Home Enviroment: No Family/Social History - Physician Review Nursing Documentation Reviewed: Yes Family/Social History: No Known Family HX Smoking Status: Light Smoker < 10 Cigarettes Daily Hx Alcohol Use: Yes Hx Substance Use: Yes Substance used: dwight Hx Substance Use Treatment: No Allergies/Home Meds Allergies/Adverse Reactions: Allergies No Known Allergies Allergy (Verified 08/16/16 08:52) Home Medications: Home Meds Medication Instructions Recorded Confirmed hydroCHLOROthiazide [Microzide] 12.5 mg PO DAILY 09/11/17 09/11/17 Review of Systems - Review of Systems Constitutional: Normal Eyes: Normal ENT: Normal Respiratory: Normal Cardiovascular: Normal Gastrointestinal: Normal Genitourinary Male: Normal Musculoskeletal: Normal Skin: Normal Neurological: Dizziness Endocrine: Normal Hemo/Lymphatic: Normal Psychiatric: Normal Physical Exam Vital Signs Reviewed: Yes Vital Signs Temp Pulse Resp BP Pulse Ox 09/23/17 14:32 97.7 F 84 17 158/89 H 95 Temperature: Afebrile Blood Pressure: Hypertensive Pulse: Regular Respiratory Rate: Normal Appearance: Positive for: Well-Appearing, Non-Toxic, Comfortable Pain Distress: None Mental Status: Positive for: Alert and Oriented X 3 - Systems Exam Head: Present: Atraumatic, Normocephalic Pupils: Present: PERRL Extroacular Muscles: Present: EOMI Conjunctiva: Present: Normal Ears: Present: Normal Mouth: Present: Moist Mucous Membranes Pharnyx: Present: Normal Nose (External): Present: Atraumatic Nose (Internal): Present: Normal Inspection Neck: Present: Normal Range of Motion Respiratory/Chest: Present: Clear to Auscultation, Good Air Exchange Cardiovascular: Present: Regular Rate and Rhythm Abdomen: No: Tenderness, Distention, Normal Bowel Sounds, Peritoneal Signs, Rebound, Guarding, McBurney's Point Tender, Rovsing's Sign Present, Hernias, Feeding Tubes, Ostomy Tubes, Mass/Organomegaly, Scars, Other Back: Present: Normal Inspection Upper Extremity: Present: Normal Inspection Lower Extremity: Present: Normal Inspection Neurological: Present: GCS=15, CN II-XII Intact, Speech Normal, Motor Func Grossly Intact Skin: Present: Warm, Normal Color Psychiatric: Present: Alert, Oriented x 3, Normal Insight, Normal Concentration Medical Decision Making ED Course and Treatment: you were treated in the ED today fo hx htn and haven't taken blood pressure medication in a few days, and now with dizziness but otherwise without any nausea/vomiting/headache/difficulty breathing/chest pain/abdomen pain/numbness/ tingling/loss of limb function/pain with urination/drug use/smoking. You were otherwise breathing easily, pink moist lips, smiling and talking easily, good strength/sensation, alert/oriented, walking easily, clear lungs, no abdomen tenderness, no fever temp 97.7, stable heart rate 84, stable breathing rate 17, excellent oxygen level 95% room air, elevated blood pressure 158/89_ which we recommend repeat in 2-3 days primary care office to determine further treatment , you have blood tests no infection count 9, stable blood level hemoglobin 14/ platelets 272, stable chemistry, mildly elevated liver AST/ALT 73/80, heart blood test negative less than 0.01, urine test no acute sign of infection, ct head radiology with no acute findings, ECG normal sinus rhythm, meclizine, observation done in the ED with improvement, counselled to monitor symptoms and thus discharged home with safe ride. 1. Recommend meclizine as directed for dizziness and dont' work/drive/drink alcohol when using. 2. Recommend follow-up primary care 2 days to review symptoms, to discuss your blood pressure control medications as you stated you don't like the way it feels HCTZ, referral to neurology to review your symptoms and cardiology clinic as planned tomorrow to review your symptoms, referral to ear nose throat clinic to review your symptoms , referral to gastroenterology clinic for mildly elevated liver tests to ensure further care, referral to urology for ketones/blood/protein in urine to ensure no complications. 4. If any worsening pain, fever, chills, nausea, vomiting, difficulty breathing, numbness, loss of limb function, pain with urination or any medical condition then return to the ED. Report Date : 09/23/2017 16:28:42 PROCEDURE: CT HEAD WITHOUT CONTRAST. Dictator : Emmett Bermudez MD IMPRESSION: No acute findings 09/23/17 17:28 09/23/17 18:04 Reassessment Condition: Re-examined, Improved - Lab Interpretations Lab Results: 09/23/17 15:29 09/23/17 15:29 Lab Results 09/23/17 16:58: Urine Color Yellow, Urine Appearance Sl cloudy, Urine pH 6.0, Ur Specific [place] >= 1.030, Urine Protein 100 H, Urine Glucose (UA) Negative, Urine Ketones Trace H, Urine Blood Trace-intact H, Urine Nitrate Negative, Urine Bilirubin Negative, Urine Urobilinogen 0.2, Ur Leukocyte Esterase Negative , Urine RBC 0 - 2, Urine WBC Negative, Ur Epithelial Cells 1 - 3, Hyaline Casts 0 - 2, Urine Other Mucus 09/23/17 15:29: PT 11.7, INR 1.03, APTT 28.4 09/23/17 15:29: Sodium 149 H, Potassium 4.7, Chloride 109 H, Carbon Dioxide 25, Anion Gap 20, BUN 16, Creatinine 1.0, Est GFR ( Amer) > 60, Est GFR (Non- Af Amer) > 60, Random Glucose 107, Calcium 10.0, Magnesium 1.8, Total Bilirubin 0.8, AST 73 H D, ALT 80 H, Alkaline Phosphatase 87, Lactate Dehydrogenase 557, Total Creatine Kinase 660 H, CK-MB (CK-2) 1.3, CK-MB (CK-2) % Cancelled, Troponin I < 0.01, Total Protein 7.9, Albumin 4.7, Globulin 3.2, Albumin/ Globulin Ratio 1.5 09/23/17 15:29: WBC 9.2 D, RBC 4.76, Hgb 14.4, Hct 41.5 L, MCV 87.2, MCH 30.3, MCHC 34.7, RDW 14.8 H, Plt Count 272, MPV 9.2, Gran % 54.7, Lymph % (Auto) 36.7 H, [place] % (Auto) 7.8 H, Eos % (Auto) 0.5 L, Baso % (Auto) 0.3, Gran # 5.05, Lymph # (Auto) 3.4, [place] # (Auto) 0.7 H, Eos # (Auto) 0.1, Baso # (Auto) 0.03 I have reviewed the lab results: Yes - RAD Interpretation Radiology Orders: 09/23/17 14:49 HEAD W/O CONTRAST [CT] [facility] Coordinator: Radiologist - EKG Interpretation Interpreted by ED Physician: Yes (NSR) Type: 12 lead EKG - Medication Orders Current Medication Orders: Discontinued Medications Meclizine HCl (Antivert) 25 mg PO STAT STA Stop: 09/23/17 14:51 Last Admin: 09/23/17 15:34 Dose: 25 mg NIHSS Stroke Scale 3 - Date/Time Evaluation Performed Date Performed: 09/23/17 When Was NIHSS Performed: Baseline - How Severe is the Stroke Level of Consciousness: 0=Alert LOC to Questions: 0=Both comments correct LOC to commands: 0=Obeys both correctly Best Gaze: 0=Normal Visual: 0=No visual loss Facial: 0=Normal Motor Arm - Left: 0=No drift Motor Arm - Right: 0=No drift Motor Leg - Left: 0=No drift Motor Leg - Right: 0=No drift Limb Ataxia: 0=Absent Sensory: 0=Normal Best Language: 0=No aphasia Dysarthia: 0=Normal articulation Extinction & Inattention (Neglect): 0=Normal, no object Score: 0 Disposition/Present on Arrival - Present on Arrival Any Indicators Present on Arrival: No History of DVT/PE: No History of Uncontrolled Diabetes: No Urinary Catheter: No History Surgical Site Infection Following: None - Disposition Have Diagnosis and Disposition been Completed?: Yes Diagnosis: Dizziness Disposition: HOME/ ROUTINE Disposition Time: 18:06 Patient Plan: Discharge Condition: IMPROVED Discharge Instructions (ExitCare): Vertigo (a Type of Dizziness) (DC) Additional Instructions: you were treated in the ED today fo hx htn and haven't taken blood pressure medication in a few days, and now with dizziness but otherwise without any nausea/vomiting/headache/difficulty breathing/chest pain/abdomen pain/numbness/ tingling/loss of limb function/pain with urination/drug use/smoking. You were otherwise breathing easily, pink moist lips, smiling and talking easily, good strength/sensation, alert/oriented, walking easily, clear lungs, no abdomen tenderness, no fever temp 97.7, stable heart rate 84, stable breathing rate 17, excellent oxygen level 95% room air, elevated blood pressure 158/89_ which we recommend repeat in 2-3 days primary care office to determine further treatment , you have blood tests no infection count 9, stable blood level hemoglobin 14/ platelets 272, stable chemistry, mildly elevated liver AST/ALT 73/80, heart blood test negative less than 0.01, urine test no acute sign of infection, ct head radiology with no acute findings, ECG normal sinus rhythm, meclizine, observation done in the ED with improvement, counselled to monitor symptoms and thus discharged home with safe ride. 1. Recommend meclizine as directed for dizziness and dont' work/drive/drink alcohol when using. 2. Recommend follow-up primary care 2 days to review symptoms, to discuss your blood pressure control medications as you stated you don't like the way it feels HCTZ, referral to neurology to review your symptoms and cardiology clinic as planned tomorrow to review your symptoms, referral to ear nose throat clinic to review your symptoms , referral to gastroenterology clinic for mildly elevated liver tests to ensure further care, referral to urology for ketones/blood/protein in urine to ensure no complications. 4. If any worsening pain, fever, chills, nausea, vomiting, difficulty breathing, numbness, loss of limb function, pain with urination or any medical condition then return to the ED. Prescriptions: Meclizine [Antivert] 12.5 mg PO DAILY PRN 5 Days #5 tab PRN Reason: Dizziness Referrals: Ivan Martinez DO [Primary Care Provider] - Follow up with primary Forms: WORK NOTE
[2017-09-23 15:42] LABS: BASO # 0.03 K/mm3 (0.0-2.0); BASO % 0.3 % (0.0-3.0); EOS # 0.1 (0.0-0.7); EOS % 0.5 % (1.5-5.0); GRAN # 5.05 (1.4-6.5); GRAN % 54.7 % (50.0-68.0); HEMOGLOBIN 14.4 g/dL (14.0-18.0); LYMPH # 3.4 (1.2-3.4); LYMPH % 36.7 % (22.0-35.0); MEAN CELL VOLUME 87.2 fl (80.0-105.0); MEAN CORPUSCULAR HEMOGLOBIN 30.3 pg (25.0-35.0); MEAN CORPUSCULAR HGB CONC 34.7 g/dl (31.0-37.0); MEAN PLATELET VOLUME 9.2 fl (7.0-11.0); MONO # 0.7 (0.1-0.6); MONO % 7.8 % (1.0-6.0); RBC 4.76 10^6/uL (3.5-6.1); RED CELL DISTRIBUTION WIDTH 14.8 % (11.5-14.5); WHITE BLOOD COUNT 9.2 10^3/ul (4.5-11.0)
[2017-09-23 15:54] LABS: ALB/GLOB RATIO 1.5 (1.1-1.8); ALBUMIN 4.7 g/dL (3.0-4.8); ALT/SGPT 80 U/L (7-56); AST/SGOT 73 U/L (17-59); BLOOD UREA NITROGEN 16 mg/dL (7-21); GFR NON-AFRICAN AMERICAN > 60
[2017-09-23 15:55] LABS: INR 1.03 (0.93-1.08); PARTIAL THROMBOPLASTIN TIME 28.4 Seconds (25.1-36.5); PROTHROMBIN TIME 11.7 SECONDS (9.4-12.5)
[2017-09-23 16:04] LABS: TROPONIN I < 0.01 ng/mL
[2017-09-23 16:10] LABS: CK-MB 1.3 ng/mL (0.0-3.6)
--- NOTE | 2017-09-23 16:30 | CT ---
PROCEDURE: CT HEAD WITHOUT CONTRAST. HISTORY: 42yoM, with dizziness COMPARISON: None available. TECHNIQUE: Axial computed tomography images were obtained through the head/brain without intravenous contrast. Radiation dose: Total exam DLP = 925 mGy-cm. This CT exam was performed using one or more of the following dose reduction techniques: Automated exposure control, adjustment of the mA and/or kV according to patient size, and/or use of iterative reconstruction technique. FINDINGS: HEMORRHAGE: No intracranial hemorrhage. BRAIN: No mass effect or edema. No atrophy or chronic microvascular ischemic changes. VENTRICLES: Unremarkable. No hydrocephalus. CALVARIUM: Unremarkable. PARANASAL SINUSES: Unremarkable as visualized. No significant inflammatory changes. MASTOID AIR CELLS: Unremarkable as visualized. No inflammatory changes. OTHER FINDINGS: None. IMPRESSION: No acute findings
[2017-09-23 17:13] LABS: URINE BILIRUBIN NEGATIVE (NEGATIVE); URINE BLOOD TRACE-INTACT (NEGATIVE); URINE GLUCOSE (UA) NEGATIVE (NEGATIVE); URINE LEUKOCYTE ESTERASE NEGATIVE Leu/uL (NEGATIVE); URINE PROTEIN 100 mg/dL (<30 mg/dL); URINE UROBILINOGEN 0.2 E.U./dL (<1 E.U./dL)
[2017-09-23 17:14] LABS: URINE APPEARANCE SL CLOUDY (CLEAR); URINE COLOR YELLOW (YELLOW)
[2017-09-23 17:18] LABS: URINE HYALINE CAST 0 - 2 /hpf; URINE RBC 0 - 2 /hpf (0-2); URINE WBC NEGATIVE /hpf (0-6)
[2017-09-23 18:35] VITALS: RESP 18
[2017-09-23 20:00] VITALS: BP 158/90; PULSE 74; O2SAT 99
--- NOTE | 2017-09-23 20:35 | CARD ---
APPROVED REPORT EKG Measurement Heart [id number] <Conclusion> Normal sinus rhythm Normal ECG
== END 2017-09-23 20:01 | disposition home or self-care (01) ==
LOC: ED 14:11
DX: R42 Dizziness and giddiness (principal); I10 Essential (primary) hypertension; F17.210 Nicotine dependence, cigarettes, uncomplicated

== ENCOUNTER 2017-10-30 06:20 | Day surgery (SDC) | payer BC ==
[2017-10-21 13:04] VITALS: BMI 31.9
--- NOTE | 2017-10-29 20:20 | HP ---
REASON FOR ADMISSION: Left heart cath, possible angioplasty, abnormal stress test. BRIEF CLINICAL HISTORY: This is a 42-year-old male with a past medical history of hypertension, who is being followed by Dr. Pink, underwent a stress test and an echo. Stress test was abnormal equivocal, so the patient is scheduled for elective cardiac cath and possible angioplasty. PAST MEDICAL HISTORY: Significant for hypertension, on amlodipine. SOCIAL HISTORY: Denies any history of alcohol abuse. RECENT CARDIAC WORKUP: As follows: Patient had a stress test dated 10/01/2017 that shows equivocal SPECT myocardial perfusion study, reversible anterior and inferior defect possibly due to prominent pectoral muscles soft tissue attenuation , however, ischemia cannot be excluded; ejection fraction of 55%. Patient had echocardiography on 09/26/2017 that shows no prolapse, no MVP, no thrombus, no vegetation. Mild hypertrophy, normal LV systolic function, ejection fraction calculated at 80%. [id number] mitral regurgitation, trace tricuspid regurgitation, RV systolic pressure 29. CURRENT MEDICATIONS: Patient is taking amlodipine 5 mg daily. REVIEW OF SYSTEMS: As per HPI. PHYSICAL EXAMINATION: VITAL SIGNS: Height of the patient is 5 feet 11 inches, weight of the patient is 229 pounds, body mas index 32 kg/m2. Temperature afebrile, heart rate 80, blood pressure 130/72. HEENT: PERRLA. Extraocular muscles intact. NECK: Supple. No carotid bruit or thyromegaly. CHEST: Clear to auscultation. HEART: S1, S2 regular. ABDOMEN: Soft. EXTREMITIES: Clubbing and cyanosis negative. LABORATORY DATA: Blood workup pending. IMPRESSION: Abnormal stress test, suspicious of anterior inferior ischemia, ejection fraction preserved. Trace mitral regurgitation, trace tricuspid regurgitation, hypertension. RECOMMENDATIONS: Further recommendations after cardiac catheterization. We will follow with you. We will load with aspirin, Plavix and review the blood work when available. Risks, benefits, and alternatives discussed with the patient. Patient is agreeable to proceed with cardiac catheterization. Thank you, Dr. Pink/Dr. Bonilla, for providing us the opportunity in taking care of the patient, Rashi Walls. Will Durham MD [facility] # [id number] MTDEsthela
[2017-10-30 07:06] LABS: BASO # 0.02 K/mm3 (0.0-2.0); BASO % 0.2 % (0.0-3.0); EOS # 0.1 (0.0-0.7); EOS % 1.3 % (1.5-5.0); GRAN # 5.53 (1.4-6.5); GRAN % 51.2 % (50.0-68.0); HEMOGLOBIN 13.9 g/dL (14.0-18.0); LYMPH # 4.2 (1.2-3.4); LYMPH % 38.4 % (22.0-35.0); MEAN CELL VOLUME 87.6 fl (80.0-105.0); MEAN CORPUSCULAR HEMOGLOBIN 30.3 pg (25.0-35.0); MEAN CORPUSCULAR HGB CONC 34.6 g/dl (31.0-37.0); MEAN PLATELET VOLUME 9.5 fl (7.0-11.0); MONO % 8.9 % (1.0-6.0); RBC 4.59 10^6/uL (3.5-6.1); RED CELL DISTRIBUTION WIDTH 14.1 % (11.5-14.5); WHITE BLOOD COUNT 10.8 10^3/ul (4.5-11.0)
[2017-10-30 07:13] VITALS: RESP 18
[2017-10-30 07:16] LABS: BLOOD UREA NITROGEN 15 mg/dL (7-21); CALCIUM 9.1 mg/dL (8.4-10.5); GFR AFRICAN-AMERICAN > 60; GFR NON-AFRICAN AMERICAN > 60; HDL CHOLESTEROL 41 mg/dL (29-60)
[2017-10-30 07:26] LABS: LDL CHOLESTEROL 110 mg/dL (0-129)
[2017-10-30 07:32] LABS: INR 0.97 (0.93-1.08); PARTIAL THROMBOPLASTIN TIME 30.5 Seconds (25.1-36.5); PROTHROMBIN TIME 11.1 SECONDS (9.4-12.5)
[2017-10-30] MEDS ORDERED: Phenylephrine 10 mg/ml Inj ONE (07:33)
[2017-10-30] MEDS ORDERED: Verapamil 2 ML ONE (07:33)
[2017-10-30] MEDS ORDERED: Lidocaine 2% Inj (20ml) ONE (07:33)
[2017-10-30] MEDS ORDERED: Midazolam 2 MG/2 ML VIAL ONE ×2 (07:34→07:49)
[2017-10-30] MEDS ORDERED: Iohexol 350mgl/ml 50 ML ONE (07:35)
[2017-10-30] MEDS ORDERED: Iodixanol 320 MG/ML 100 ML BOTTLE IV ONE (07:35)
[2017-10-30] MEDS ORDERED: Nitroglycerin 50mg in D5W 50 MG/250 ML BOTTLE IV ONE (07:35)
[2017-10-30] MEDS ORDERED: Iodixanol 320 MG/ML 200 ML BOTTLE IV ONE (07:35)
[2017-10-30] MEDS ORDERED: Bacitracin 500 Units/gm Oint Foilpak UD TOP ONE (08:41)
[2017-10-30] MEDS ORDERED: Sodium Chloride 0.9% 1,000 ML IV SCH (08:45)
[2017-10-30 08:51] VITALS: TEMP 97.9
--- NOTE | 2017-10-30 09:06 | CARD ---
APPROVED REPORT Procedure(s) performed: Left Heart Catheterization HISTORY The patient is a 42 year-old male with a history of : most recent EF: 55%. (EF Method: RADIONUCLIDE), tobacco history() : The patient is a current smoker , hypertension , dyslipidemia , Abnormal stress test suspicious for anterior and inferior Ischemia. INDICATION The indication(s) include : positive stress test, Anterior and inferior Ischemia.. CASE TECHNIQUE The patient was brought electively to the Cardiac Catheterization Laboratory in a fasting state and was prepped and draped in a sterile manner. The was infiltrated with 2% Lidocaine subcutaneous anesthesia. A 6FR GLIDESHEATH ACCESS KIT sheath was inserted into the left radial artery without difficulty. Coronary angiography was performed using coronary diagnostic catheters. The left coronary system was accessed and visualized with a Diagnostic ,5F JL 4 CATH DXT 100 CM catheter. The right coronary system was accessed and visualized with a Diagnostic ,5F JR 4 CATH DXT 100 CM catheter. The left ventricle was accessed and visualized with a 5F PIGTAIL 145 CATH DXT 110 CM catheter. Left ventricular/Aortic Valve gradient assessed on pullback. Left ventriculogram was performed in LUGO projection. Closure device was deployed with a 6 Fr TR Band (Large) without any complications. The patient tolerated the procedure well and there were no complications associated with the procedure. Vessel Analysis The patient's coronary anatomy is left dominant. The left main coronary artery is a large size vessel with intimal irregularities. The left main trifurcates to the left anterior descending, circumflex, and ramus. The left anterior descending artery is a large size vessel with intimal irregularities. slow blood flow noted, but ironer stenosis The first diagonal branch is a medium size vessel without significant stenosis. The second diagonal branch is a small size vessel with intimal irregularities and without significant stenosis. The third diagonal branch is a small size vessel with intimal irregularities and without significant stenosis. The circumflex artery is a large size vessel with intimal irregularities. The first obtuse marginal branch is a small size vessel with diffuse calcification noted throughout this vessel and without significant stenosis. There is a 55% stenosis in the distal segment. diffuselue diseased, non focal non flow limiting The second obtuse marginal branch is a medium size vessel with intimal irregularities and without significant stenosis. The third obtuse marginal branch is a small size vessel with intimal irregularities and without significant stenosis. The left posterior descending artery is a large size vessel with intimal irregularities and without significant stenosis. The ramus intermedius artery is a medium size vessel with intimal irregularities and without significant stenosis. The right coronary artery is a small size vessel without significant stenosis. Left Ventricle The left ventricle is milodly enlarged in size with normal contractility. There was no cardiomyopathy. The left ventricular ejection fraction is estimated to be 55%. The left ventricular end diastolic pressure is 15 mmHg. There was no gradient across the aortic valve upon pullback. Conclusion Non Obstructive CAD, limited to OM1 55%, distal difffusely diseased, but no focal flow limiting stenosis. Slow blood flow in RCA/ LAD noted. Enlarged Heart, but preserved Lv FX, EF-55%, EDP-15 mmof Hg. Recommendations Aggressive Medical Therapy Weight Loss Reduction Program Complete abstinence from ETOH abuse. continue Norvasc Add baby ASA 81 mg po daily. CC; drs. Bonilla / Apryl.
[2017-10-30] MEDS ORDERED: Bacitracin 500 Units/gm Oint Foilpak UD ONE (11:12)
--- NOTE | 2017-10-30 11:23 | CARD ---
APPROVED REPORT EKG Measurement Heart [id number] <Conclusion> Normal sinus rhythm Nonspecific ST and T wave abnormality Abnormal ECG
[2017-10-30 11:31] VITALS: BP 128/70; PULSE 68; O2SAT 97
== END 2017-10-30 12:00 | disposition home or self-care (01) ==
LOC: CATH 06:20
PROVIDERS: ATTEND Internal Medicine Cardiovascular Disease
DX: I25.10 Atherosclerotic heart disease of native coronary artery without angina pectoris (principal); I10 Essential (primary) hypertension; E78.5 Hyperlipidemia, unspecified
CPT/HCPCS: 36415; 80048; 80061; 85025; 85610; 85730; 86850; 86900; 93005; 93458; 99152; C1769; J1644 ×2; J2250; J3010; J7030; J7040; Q9966; Q9967

== ENCOUNTER 2018-03-22 05:11 | Observation (INO) | payer BC, MEDICAID ==
--- NOTE | 2018-03-22 05:27 | ED PDOC ---
Arrival/HPI - General Historian: Patient EM Caveat: Intoxicated - Critical Care Critical Care Minutes: 30 minutes - History of Present Illness Narrative History of Present Illness (Text): 03/22/18 05:24 42 year old male with a past medical history of hypertension who present to the emergency department complaining of chest pain for the past one hour. Patient is unable to give a description of the pain at the time of the interview. Patient admits to taking "Dwight" prior to the onset of chest pain. Patient denies any fevers, chills, nausea, vomiting, changes in vision, abdominal pain, or any other complaints. Medical history: hypertension Allergies: Denies Social history: Weekend drinker. Current smoker. Admits to Dwight use. Denies any other illcit drug use Sugical history: Bunion removal Time/Duration: Prior to Arrival Symptom Onset: Sudden Symptom Course: Unchanged Quality: Unable to Describe Severity Level: 5 Activities at Onset: Rest Context: Sitting <Alonso Armenta - Last Filed: 03/22/18 06:27> Past Medical History - Provider Review Nursing Documentation Reviewed: Yes - Travel History Have you recently traveled outside [place] w/in the past 3 mons?: No - Past History Past History: No Previous - Infectious Disease Hx of Infectious Diseases: None - Tetanus Immunization Tetanus Immunization: Unknown - Past Medical History Past Medical History: No Previous - Cardiac Hx Cardiac Disorders: Yes Hx Hypertension: Yes Hx Pacemaker: No - Pulmonary Hx Respiratory Disorders: No - Neurological Hx Paralysis: No - HEENT Hx HEENT Disorder: No - Renal Hx Renal Disorder: No - Endocrine/Metabolic Hx Endocrine Disorders: No - Hematological/Oncological Hx Blood Transfusions: No - Integumentary Hx Dermatological Disorder: No - Musculoskeletal/Rheumatological Hx Musculoskeletal Disorders: No - Gastrointestinal Hx Gastrointestinal Disorders: No - Genitourinary/Gynecological Hx Genitourinary Disorders: No - Psychiatric Hx Emotional Abuse: No Hx Physical Abuse: No Hx Substance Use: Yes (DENIES) - Past Surgical History Past Surgical History: No Previous - Anesthesia Hx Anesthesia Reactions: No Hx Malignant Hyperthermia: No - Suicidal Assessment Feels Threatened In Home Enviroment: No <Alonso Armenta - Last Filed: 03/22/18 06:27> Family/Social History - Physician Review Nursing Documentation Reviewed: Yes Family/Social History: No Known Family HX Smoking Status: Light Smoker < 10 Cigarettes Daily Hx Alcohol Use: Yes ("WEEKENDS ONLY") Hx Substance Use: Yes (DENIES) Substance used: dwight Hx Substance Use Treatment: No <GeovanyAlonso - Last Filed: 03/22/18 06:27> Allergies/Home Meds <Marco Antonio Armentaaan - Last Filed: 03/22/18 06:27> <CarolinaChris hannon - Last Filed: 03/23/18 02:03> Allergies/Adverse Reactions: Allergies No Known Allergies Allergy (Verified 03/22/18 05:13) Home Medications: Home Meds Medication Instructions Recorded Confirmed RX: amLODIPine [Norvasc] 5 mg PO DAILY 10/01/17 03/22/18 Review of Systems - Physician Review All systems were reviewed & negative as marked: Yes - Review of Systems Systems not reviewed;Unavailable: Intoxicated Cardiovascular: Chest Pain. absent: Palpitations, Edema, Syncope, Other <Lilian Armentan - Last Filed: 03/22/18 06:27> Physical Exam Vital Signs Temp Pulse Resp BP Pulse Ox 03/22/18 05:17 98.0 F 110 H 18 170/90 H 97 Temperature: Afebrile Blood Pressure: Hypertensive Pulse: Tachycardic Respiratory Rate: Normal Appearance: Positive for: Well-Appearing, Non-Toxic, Comfortable. No: Ill- Appearing Pain Distress: Mild Mental Status: Positive for: Confused - Systems Exam Head: Present: Atraumatic, Normocephalic. No: Abrasion, Laceration Pupils: Present: Sluggish Extroacular Muscles: Present: EOMI. No: Gaze Palsy Conjunctiva: Present: Normal Mouth: Present: Moist Mucous Membranes. No: Dry, Drooling Nose (Internal): No: Epistaxis Neck: Present: Normal Range of Motion. No: JVD Respiratory/Chest: Present: Clear to Auscultation, Good Air Exchange. No: Wheezes, Decreased Breath Sounds Cardiovascular: Present: Normal S1, S2, Tachycardic Abdomen: Present: Normal Bowel Sounds. No: McBurney's Point Tender, Ostomy Tubes Upper Extremity: Present: Normal Inspection. No: Erythema, Capillary Refill < 2s Lower Extremity: Present: Normal Inspection. No: Normal ROM, Deformity Neurological: Present: CN II-XII Intact, Speech Normal. No: Normal Cerebellar Funct, Gait Normal Skin: Present: Dry, Normal Color Psychiatric: Present: Intoxicated <Alonso Armenta - Last Filed: 03/22/18 06:27> Vital Signs Temp Pulse Resp BP Pulse Ox 03/22/18 05:17 98.0 F 110 H 18 170/90 H 97 <Chris Gaspar - Last Filed: 03/23/18 02:03> Medical Decision Making ED Course and Treatment: 03/22/18 05:30 42 year old male with a past medical history of hypertension presents to emergency department for chest pain. Plan: EKG CBC CMP Troponin UDS FARIDA CXR Aspirin 325 mg PO Once 03/22/18 06:14 03/22/18 06:19 FARIDA : 234 03/22/18 06:[address] Bonilla Service. - Critical Care Critical Care Minutes: 30 minutes - Medication Orders Current Medication Orders: Discontinued Medications Aspirin (Aspirin) 325 mg PO STAT STA Stop: 03/22/18 05:17 <Alonso Armenta - Last Filed: 03/22/18 06:27> ED Course and Treatment: Impression: Pt seen and evaluated with remote medical coder. Aware and agree with plan. Pt, whose past medical history includes hypertension, presented for chest pain. Pt admits to taking "Dwight" tonight. case d/w dr bonilla will obs for cp Plan: -- EKG -- Labs -- Aspirin -- Reassess and disposition Progress Notes: 03/23/18 02:03 - Medication Orders Current Medication Orders: Discontinued Medications Aspirin (Aspirin) 325 mg PO STAT STA Stop: 03/22/18 05:17 <Chris Gaspar - Last Filed: 03/23/18 02:03> - PA / POTATO INSPECTOR / Resident Statement / has reviewed & agrees with the documentation as recorded. / has examined the patient and agrees with the treatment plan. <Chris Gaspar - Last Filed: 03/23/18 02:03> Disposition/Present on Arrival - Present on Arrival Any Indicators Present on Arrival: No History of DVT/PE: No History of Uncontrolled Diabetes: No Urinary Catheter: No History of Decub. Ulcer: No History Surgical Site Infection Following: None - Disposition Have Diagnosis and Disposition been Completed?: Yes Disposition Time: 06:12 Patient Plan: Admission <Alonso Armenta - Last Filed: 03/22/18 06:27> <Chris Gaspar - Last Filed: 03/23/18 02:03> - Disposition Diagnosis: Chest pain Disposition: HOSPITALIZED Patient Problems: Current Active Problems Problem Status Onset Chest pain Acute Condition: GUARDED
[2018-03-22 05:29] VITALS: BMI 28.5
[2018-03-22 05:35] LABS: ALB/GLOB RATIO 1.4 (1.1-1.8); ALBUMIN 4.8 g/dL (3.0-4.8); ALT/SGPT 76 U/L (7-56); AST/SGOT 66 U/L (17-59); BLOOD UREA NITROGEN 11 mg/dL (7-21); CALCIUM 9.9 mg/dL (8.4-10.5); GFR NON-AFRICAN AMERICAN > 60; HDL CHOLESTEROL 62 mg/dL (29-60)
[2018-03-22 05:46] LABS: LDL CHOLESTEROL 125 mg/dL (0-129)
[2018-03-22 05:49] LABS: TROPONIN I < 0.01 ng/mL
[2018-03-22 05:56] LABS: BASO # 0.02 K/mm3 (0.0-2.0); BASO % 0.2 % (0.0-3.0); EOS % 0.4 % (1.5-5.0); GRAN # 6.04 (1.4-6.5); GRAN % 53.2 % (50.0-68.0); HEMOGLOBIN 14.8 g/dL (14.0-18.0); LYMPH # 4.6 (1.2-3.4); LYMPH % 40.5 % (22.0-35.0); MEAN CELL VOLUME 86.5 fl (80.0-105.0); MEAN CORPUSCULAR HEMOGLOBIN 30.3 pg (25.0-35.0); MEAN CORPUSCULAR HGB CONC 35.1 g/dl (31.0-37.0); MEAN PLATELET VOLUME 9.2 fl (7.0-11.0); MONO # 0.7 (0.1-0.6); MONO % 5.7 % (1.0-6.0); RBC 4.88 10^6/uL (3.5-6.1); RED CELL DISTRIBUTION WIDTH 14.2 % (11.5-14.5); WHITE BLOOD COUNT 11.4 10^3/uL (4.5-11.0)
[2018-03-22] MEDS ORDERED: Metoprolol 1 mg/ml Inj IVP ONE (06:09)
[2018-03-22 07:33] LABS: BARBITURATES, UR NEGATIVE (NEGATIVE); BENZODIAZEPINES, UR NEGATIVE (NEGATIVE); OPIATES, UR NEGATIVE (NEGATIVE); PHENCYCLIDINE, UR NEGATIVE (NEGATIVE)
[2018-03-22] MEDS ORDERED: Multivitamin (MVI) 10 ML, Thiamine 100 MG, Folic Acid 1 MG in Sodium Chloride 0.9% 1,00... IV ONE (08:41)
--- NOTE | 2018-03-22 11:11 | RAD ---
Date of service: 03/22/2018 HISTORY: Chest pain COMPARISON: 09/11/2017. FINDINGS: LUNGS: The lungs are well inflated and clear. PLEURA: No pleural effusions or pneumothorax. CARDIOVASCULAR: The heart is normal in size. No aortic atherosclerotic calcification present. OSSEOUS STRUCTURES: Within normal limits for the patient's age. VISUALIZED UPPER ABDOMEN: Normal. OTHER FINDINGS: None. IMPRESSION: No active pulmonary disease.
[2018-03-22 11:45] LABS: IRON 146 ug/dL (45-180)
[2018-03-22 11:56] LABS: % IRON SATURATION 41 % (20-55); TOTAL IRON BINDING CAPACITY 356 ug/dL (261-462)
[2018-03-22 11:59] LABS: TROPONIN I < 0.01 ng/mL
[2018-03-22 12:02] LABS: CK-MB 1.4 ng/mL (0.0-3.6)
--- NOTE | 2018-03-22 15:27 | CON ---
DATE OF CONSULTATION: 03/22/2018 REASON FOR CONSULTATION: Chest pain and drug abuse as well as alcohol intoxication. HISTORY OF PRESENT ILLNESS: The patient is a 42-year-old male who has a history of hypertension, on amlodipine 5 mg daily at home, presented because of what he describes as chest tightness following alcohol intake. The patient is unaware of any prior cardiac history and at this time the patient denies any chest pain. 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 He smokes, drinks. CURRENT HOSPITAL MEDICATIONS: Multivitamin intravenous infusion, amlodipine 5 mg once a day, Tylenol 650 mg p.o. every 4 hours p.r.n., thiamine 100 mg p.o. daily. REVIEW OF SYSTEMS: No nausea or vomiting. No fever or chills. The patient did report shortness of breath at the time of his chest discomfort. Denies any history of asthma. PHYSICAL EXAMINATION: GENERAL: The patient is a middle-aged male who does not appear to be in any distress. VITAL SIGNS: Blood pressure 150/71, heart rate 92, temperature 98.2, respirations 18. HEENT: Normocephalic. NECK: No JVD. CHEST: Clear. HEART: S1 and S2, regular. ABDOMEN: Soft. EXTREMITIES: No edema. No calf tenderness. Good distal pulses. LABORATORY DATA: CBC: WBC 11.4, hemoglobin 14.8, hematocrit 42.2, platelet count 295,000. SMA-7: Sodium 142, potassium 4.5, chloride 102, CO2 of 27, glucose 124, BUN 11, creatinine 1.0. Two sets of troponins are negative. Lipid profile is within normal limits, except for HDL cholesterol of 62. Iron profile is within normal limits. AST and ALT are 66 and 76 respectively. Total creatine kinase 646. EKG is not available in the [employer] database and I will order one now. Chest x-ray revealed normal cardiac silhouette, prominent bronchovascular markings. Alcohol level on admission 234. Drug screen is positive for amphetamines. ASSESSMENT: 1. Chest pain, myocardial infarction ruled out. 2. Hypertension. 3. Alcohol intoxication. 4. Amphetamine abuse. RECOMMENDATIONS: Continue aspirin 81 mg once a day, Norvasc 5 mg once a day. Obtain a 12-lead EKG and an echocardiogram. Continue current thiamine and multivitamins. Matthew Chan MD [facility] # [id number]
[2018-03-22 17:09] LABS: FOLATE > 20.0 ng/mL
--- NOTE | 2018-03-22 18:03 | CARD ---
APPROVED REPORT Date of service: 03/22/2018 EKG Measurement Heart [id number] <Conclusion> Sinus tachycardia Possible Left atrial enlargement Incomplete right bundle branch block Nonspecific T wave abnormality Abnormal ECG
--- NOTE | 2018-03-23 02:31 | HP ---
DATE OF EXAM: 03/22/2018 The patient is 42 years old male. The patient was seen and examined at the bedside on 03/22/2018. CHIEF COMPLAINT: Chest pain. HISTORY OF PRESENT ILLNESS: Mr. Rashi Walls is a 42 years old male with history of hypertension, came to the emergency department complaining of chest pain for past one hour on the day of admission. The patient is unable to give description of the pain at the time of interview. He was actually very poor historian. Even I asked him in his room with his nurse. The patient admits to taking Edyta prior to the onset of the chest pain. The patient denies any fever, chills, nausea, vomiting, changing in vision, abdominal pain or any other complaints. No fever. No chills. PAST MEDICAL HISTORY: Hypertension. Stress test was done a couple of months ago as per the patient. ALLERGIES: NO KNOWN ALLERGIES. SOCIAL HISTORY: Weekend drinker. Currently smoking. Admits to take Edyta. Denies any other illicit drugs. PAST SURGICAL HISTORY: History of bunion removed in the past. FAMILY HISTORY: Father and mother, noncontributory. HOME MEDICATIONS: Amlodipine. REVIEW OF SYSTEMS: The patient was seen and examined at the bedside in his room with his nurse, feeling a little bit better, seen by the supervisor tumbling and rolling, Dr. Chan. No fever. No chills. No headache. No dizziness. No chest pain. No palpitations with movement. No coughing. PHYSICAL EXAMINATION VITAL SIGNS: Temperature 98, pulse 94, blood pressure 114/76, respiratory rate 18. HEENT: Head normocephalic, atraumatic. Eyes PERRLA. Extraocular muscles are intact. Conjunctivae clear. Nose patent. Mucous membranes moist. NECK: Supple. No carotid bruits. No JVD, thyromegaly. CHEST: Bilaterally symmetrical. HEART: S1, S2 positive. LUNGS: Clear to auscultation. ABDOMEN: Soft. Bowel sounds positive. No organomegaly. EXTREMITIES: No edema. No cyanosis. NEUROLOGIC: The patient is awake and alert, moving all four extremities. No focal deficits. LABORATORY DATA: White blood cell 11.4, hemoglobin 14.8, hematocrit 42.2, platelets 295. Sodium 142, potassium 4.5, BUN 11, creatinine 1, glucose 124. Creatine kinase 646. ASSESSMENT AND PLAN: Mr. Rashi Walls is a 42 years old male with leukocytosis, hyperglycemia, prediabetic, hemoglobin A1c 6.1, abnormal liver function test. We will do ultrasound of the liver. Drug toxicology is positive for amphetamines, alcohol level is 234. History of hypertension. Chest x-ray done. Electrocardiography done. Seen by Dr. Chan, supervisor tumbling and rolling. Per Dr. Chan, myocardial should be ruled out, hypertension, alcohol intoxication. Started on aspirin and Norvasc. Obtain EKG and echocardiography. Continue current thiamine and banana bag. Discussion done with the patient and nursing staff. GI and DVT prophylaxis. Repeat labs. We will follow up. Roxann Bonilla MD
[2018-03-23 02:41] VITALS: RESP 20
[2018-03-23 06:19] VITALS: TEMP 98; O2SAT 96
[2018-03-23 07:02] LABS: HEMOGLOBIN 14.9 g/dL (14.0-18.0); MEAN CORPUSCULAR HEMOGLOBIN 29.3 pg (25.0-35.0); MEAN CORPUSCULAR HGB CONC 33.3 g/dl (31.0-37.0); MEAN PLATELET VOLUME 9.4 fl (7.0-11.0); RBC 5.08 10^6/uL (3.5-6.1); RED CELL DISTRIBUTION WIDTH 14.2 % (11.5-14.5); WHITE BLOOD COUNT 12.9 10^3/uL (4.5-11.0)
[2018-03-23 07:34] LABS: BLOOD UREA NITROGEN 16 mg/dL (7-21); CALCIUM 9.9 mg/dL (8.4-10.5); GFR NON-AFRICAN AMERICAN > 60
--- NOTE | 2018-03-23 09:01 | CP.PCM.PCO ---
Addendum Addendum: 03/23/18 09:00 pt was at ECHO while this literary writer rounded discussed with RN no acute psychiatric issues no agitation/no aggression/no psychosis pt participates in treatment plan no behavioral issues will f/u
[2018-03-23 09:10] VITALS: BP 135/80; PULSE 96
--- NOTE | 2018-03-23 10:33 | CARD ---
APPROVED REPORT Date of service: 03/23/2018 EXAM: Two-dimensional and M-mode echocardiogram with Doppler and color Doppler. INDICATION Chest Pain 2D DIMENSIONS Left Atrium (2D)3.5 (1.6-4.0cm)IVSd1.4 (0.7-1.1cm) LVDd4.2 (3.9-5.9cm)PWd1.2 (0.7-1.1cm) LVDs2.9 (2.5-4.0cm)FS (%) 31.9 % LVEF (%)60.3 (>50%) M-Mode DIMENSIONS Aortic Root3.50 (2.2-3.7cm)Aortic Cusp Exc.1.70 (1.5-2.0cm) Aortic Valve AoV Peak Ozybmytu018.0cm/Blessing Peak GR.8mmHg Mitral Valve E/A ratio0.0 TDI E/Lateral E'0.0E/Medial E'0.0 Tricuspid Valve TR Peak [id number] [id number] Peak Gr.13mmHg [id number] LEFT VENTRICLE The left ventricle is normal size. There is mild concentric left ventricular hypertrophy. The left ventricular function is normal. The left ventricular ejection fraction is within the normal range. There is normal LV segmental wall motion. Transmitral Doppler flow pattern is Grade I-abnormal relaxation pattern. No left ventricle thrombus noted on this study. There is no ventricular septal defect visualized. RIGHT VENTRICLE The right ventricle is normal size. There is normal right ventricular wall thickness. The right ventricular systolic function is normal. ATRIA The left atrium size is normal. The right atrium size is normal. AORTIC VALVE The aortic valve is normal in structure. No aortic regurgitation is present. There is no aortic valvular stenosis. There is no aortic valvular vegetation. MITRAL VALVE The mitral valve is normal in structure. Mitral regurgitation is trace. There is no mitral valve stenosis. TRICUSPID VALVE The tricuspid valve is normal in structure. There is trace tricuspid regurgitation. PULMONIC VALVE The pulmonary valve is normal in structure. There is no pulmonic valvular regurgitation. GREAT VESSELS The aortic root is normal in size. The IVC is normal in size and collapses >50% with inspiration. PERICARDIAL EFFUSION There is no pericardial effusion. <Conclusion> The left ventricle is normal size. There is mild concentric left ventricular hypertrophy. The left ventricular function is normal. The left ventricular ejection fraction is within the normal range. There is normal LV segmental wall motion. Transmitral Doppler flow pattern is Grade I-abnormal relaxation pattern.
--- NOTE | 2018-03-23 21:17 | CON ---
DATE: 03/23/2018 HISTORY: The patient is a 42-year-old male who presents with atypical chest pain. This occurred when he started smoking again. The patient's past medical history is notable for catheterization done earlier this year that showed nonobstructive CAD. He does suffer from hypertension. He denies shortness of breath. No previous diabetes mellitus. SOCIAL HISTORY: The patient has restarted smoking again. REVIEW OF SYSTEMS: A 14-point review of systems was reviewed in detail. All symptoms are resolved. PHYSICAL EXAMINATION: VITAL SIGNS: Blood pressure is 135/80, heart rates in the 80s. NECK: Negative JVD. LUNGS: Without rales. HEART: S1, S2. EXTREMITIES: Without edema. DIAGNOSTIC DATA: EKG is unremarkable. LABORATORY DATA: Shows troponins that are negative. IMPRESSION: 1. Atypical chest pain. 2. No evidence for acute coronary syndrome. 3. Hypertension. 4. Nicotine addiction.. 5. Resolution of chest pain. Given these findings, the patient has been fully worked up for his heart. There is no evidence for acute coronary syndrome. We will discontinue telemetry today. No further cardiac workup is necessary at this time. The patient is agreeable to follow up as an outpatient with Dr. Bonilla as well as with Dr. Durham. Harvinder Lovett MD
--- NOTE | 2018-03-24 10:15 | CP.PCM.PCO ---
Physician Communication Note - Physician Communication Note Physician Communication Note: pt was d/c AMA
== END 2018-03-23 12:55 | disposition left against medical advice (07) ==
LOC: ED 05:11 → ERH 06:11 → 2RSO 08:28
PROVIDERS: ADMIT Internal Medicine; ATTEND Internal Medicine
DX: R07.89 Other chest pain (principal); F10.129 Alcohol abuse with intoxication, unspecified; F15.10 Other stimulant abuse, uncomplicated; F17.200 Nicotine dependence, unspecified, uncomplicated; I10 Essential (primary) hypertension; I25.10 Atherosclerotic heart disease of native coronary artery without angina pectoris; R73.03 Prediabetes; D72.829 Elevated white blood cell count, unspecified; R94.5 Abnormal results of liver function studies; Y90.7 Blood alcohol level of 200-239 mg/100 ml; Z79.82 Long term (current) use of aspirin
CPT/HCPCS: 36415; 71045; 80048; 80053; 80061; 82550; 82553; 82607; 82746; 83036; 83540; 83550; 83615; 83690; 84443; 84484; 85025; 85027; 93005; 93306; 96365; 96366; 96375; 99285; G0378; G0480; J3411; J7030

== ENCOUNTER 2018-07-13 16:22 | Emergency (ER) | payer BC ==
[2018-07-13 16:28] VITALS: BMI 31.8
[2018-07-13 16:32] VITALS: RESP 18; TEMP 98.2
[2018-07-13] MEDS ORDERED: TDAP Vaccine 0.5 mL Syr IM ONE (17:16)
[2018-07-13] MEDS ORDERED: Lidocaine 1% Inj (20ml) IJ STA (17:17)
[2018-07-13] MEDS ORDERED: Lidocaine 5% Patch TD STA (17:20)
--- NOTE | 2018-07-13 18:03 | ED PDOC ---
Arrival/HPI - General Chief Complaint: Back Pain Time Seen by Provider: 07/13/18 16:31 Historian: Patient - History of Present Illness Narrative History of Present Illness (Text): 07/13/18 17:53 43 yo M w/ PMH of HTN, c/o an abscess to lower abd x 4 days, states that he noticed the abscess after shaving. He adds that it is more red and has increased in size. Was seen at [facility] MD seen yesterday, Rx 7 days bactrim, which he started taking, and was advised to f/u w/ stock room manager. He also adds that he has been having low back pain worse with movement and with bending, which started after he started lifting differently at work to avoid having pain to his lower abd due to the abscess. Reports no fever, chills, nausea, vomiting, urinary symptoms,trauma, injury, bowel or bladder incontinence. Past Medical History - Past History Past History: No Previous - Infectious Disease Hx of Infectious Diseases: None - Tetanus Immunization Tetanus Immunization: Unknown - Past Medical History Past Medical History: No Previous - Cardiac Hx Cardiac Disorders: Yes Hx Hypertension: Yes - Pulmonary Hx Respiratory Disorders: No - Neurological Hx Neurological Disorder: No - HEENT Hx HEENT Disorder: No - Renal Hx Renal Disorder: No - Endocrine/Metabolic Hx Endocrine Disorders: No - Hematological/Oncological Hx Blood Disorders: No - Integumentary Hx Dermatological Disorder: No - Musculoskeletal/Rheumatological Hx Musculoskeletal Disorders: No Hx Falls: No - Gastrointestinal Hx Gastrointestinal Disorders: Yes Hx Gastroesophageal Reflux: Yes - Genitourinary/Gynecological Hx Genitourinary Disorders: No - Psychiatric Hx Psychophysiologic Disorder: No Hx Substance Use: Yes - Past Surgical History Past Surgical History: No Previous - Anesthesia Hx Anesthesia Reactions: No Hx Malignant Hyperthermia: No - Suicidal Assessment Feels Threatened In Home Enviroment: No Family/Social History Family/Social History: No Known Family HX Smoking Status: Current Some Days Smoker Hx Alcohol Use: Yes Hx Substance Use: Yes Substance used: dwight Hx Substance Use Treatment: No Allergies/Home Meds Allergies/Adverse Reactions: Allergies No Known Allergies Allergy (Verified 07/13/18 16:28) Home Medications: Home Meds Medication Instructions Recorded Confirmed amLODIPine [Norvasc] 1 tab PO DAILY 07/13/18 07/13/18 Review of Systems - Review of Systems Constitutional: absent: Fatigue, Fevers Respiratory: absent: SOB, Cough Cardiovascular: absent: Chest Pain, Palpitations Gastrointestinal: absent: Abdominal Pain, Diarrhea, Nausea, Vomiting Genitourinary Male: absent: Dysuria, Frequency, Hematuria Musculoskeletal: Back Pain. absent: Arthralgias, Neck Pain Skin: Abscess. absent: Rash, Skin Lesions, Laceration Neurological: absent: Headache, Dizziness Physical Exam Vital Signs Temp Pulse Resp BP Pulse Ox 07/13/18 16:31 98.2 F 84 18 160/115 H 95 Temperature: Afebrile Blood Pressure: Hypertensive Pulse: Regular Respiratory Rate: Normal Appearance: Positive for: Well-Appearing, Non-Toxic, Comfortable Pain Distress: Mild Mental Status: Positive for: Alert and Oriented X 3 - Systems Exam Head: Present: Atraumatic, Normocephalic Pupils: Present: PERRL Extroacular Muscles: Present: EOMI Conjunctiva: Present: Normal Mouth: Present: Moist Mucous Membranes Neck: Present: Normal Range of Motion Respiratory/Chest: Present: Clear to Auscultation, Good Air Exchange. No: Respiratory Distress, Accessory Muscle Use Cardiovascular: Present: Regular Rate and Rhythm, Normal S1, S2. No: Murmurs Abdomen: No: Tenderness, Distention, Peritoneal Signs Back: Present: Normal Inspection, Midline Tenderness (+mild midline tenderness to L spine), Paraspinal Tenderness (+paralumbar tenderness) Upper Extremity: Present: Normal Inspection. No: Cyanosis, Edema Lower Extremity: Present: Normal Inspection. No: Edema Neurological: Present: GCS=15, CN II-XII Intact, Speech Normal, Motor Func Grossly Intact, Normal Sensory Function, Gait Normal Skin: Present: Warm, Dry, Normal Color, Abscess (+erythematous indurated open draining abscess of thick yellow purulent material to the suprapubic area.). No: Rashes Psychiatric: Present: Alert, Oriented x 3, Normal Insight, Normal Concentration Medical Decision Making ED Course and Treatment: 07/13/18 17:50 Plan : - tdap IM - tylenol PO - flexeril PO - lidoderm patch I&D performed, patient tolerated the procedure. Patient is asking for stronger pain medication for his back. Patient given tramadol PO. Repeat BP 155/89. Advised to follow up with pmd or referral physician after 2 days for wound and for packing removal, advised to return to the ER if unable to see his pmd. Advised to continue bactrim, Rx for keflex added. Given proper instructions on wound care. Return to the ER at any time for any new or worsening symptoms. - Medication Orders Current Medication Orders: Discontinued Medications Acetaminophen (Tylenol 325mg Tab) 975 mg PO STAT STA Stop: 07/13/18 17:21 Last Admin: 07/13/18 17:36 Dose: Not Given Non-Admin Reason: Patient Refused Lidocaine (Lidoderm) 1 ea TD STAT STA Stop: 07/13/18 17:21 Last Admin: 07/13/18 17:35 Dose: 1 ea MAR Transdermal Patch Site Document 07/13/18 17:35 SS (Rec: 07/13/18 17:36 [place] [facility] [id number] Transdermal Patch Site Transdermal Patch Site Right Shoulder Lidocaine HCl (Lidocaine 1% (20ml)) 10 ml IJ STAT STA Stop: 07/13/18 17:18 Last Admin: 07/13/18 17:36 Dose: 10 ml Tetanus/Reduced Diphtheria/Acell Pertussis (Boostrix Vaccine Inj) 0.5 ml IM . ONCE ONE Stop: 07/13/18 17:17 Procedures - Incision and Drainage Site: suprapubic area of the abdomen Blade Size: 11 I & D Procedure: betadine prep, sterile drapes applied, sterile dressing applied Progress: +Local anesthesia was administered to the site, suprapubic area of the abdomen. Incision using an 11 blade was made with produced +thick purulent material expressed from the abscess, wound packing was inserted and clean dressing applied. - PA / STOCK MIXER / Resident Statement MD/DO has reviewed & agrees with the documentation as recorded. Disposition/Present on Arrival - Present on Arrival Any Indicators Present on Arrival: No History of DVT/PE: No History of Uncontrolled Diabetes: No Urinary Catheter: No History of Decub. Ulcer: No History Surgical Site Infection Following: None - Disposition Have Diagnosis and Disposition been Completed?: Yes Diagnosis: Abscess, Low back pain Disposition: HOME/ ROUTINE Disposition Time: 18:00 Patient Plan: Discharge Condition: STABLE Discharge Instructions (ExitCare): Low Back Pain in Adults, Skin Abscess Additional Instructions: Follow up with referral physician in 2 days for wound check and packing removal. Take medication as prescribed. Return to the ER at any time for any new or worsening symptoms. Prescriptions: Cephalexin [Keflex] 500 mg PO Q6 #28 capsule Cyclobenzaprine [Cyclobenzaprine HCl] 10 mg PO TID PRN #15 tab PRN Reason: Other Lidocaine 5% [Lidoderm] 1 ea TD Q12H PRN #20 patch PRN Reason: Pain, Moderate (4-7) Referrals: Hi Everett MD [Medical Doctor] - Follow up with primary Roxann Bonilla MD [Staff Provider] - Follow up with primary Forms: [facility] (Italian), WORK NOTE
[2018-07-13 18:25] VITALS: BP 155/89; PULSE 78; O2SAT 99
== END 2018-07-13 18:29 | disposition home or self-care (01) ==
LOC: ED 16:22
DX: L02.211 Cutaneous abscess of abdominal wall (principal); M54.5 Low back pain; Z23 Encounter for immunization